=== PATIENT | male | born 1925 | race Caucasian/White ===

== ENCOUNTER 2016-05-20 09:44 | Observation (INO) | payer MEDICARE, BC ==
--- NOTE | 2016-05-20 09:54 | ED ---
Skin/Abscess/FB HPI - General Chief complaint: Skin/Abscess/Foreign Body Stated complaint: LEFT GROIN-HEMATOMA Source: patient, family Mode of arrival: wheelchair Limitations: no limitations - History of Present Illness Initial comments: Patient is a 89-year-old male who presents for evaluation for a mass to the left of his testicles. Has medical history as below. The patient's is the primary historian. The patient has dementia. Patient has been scratching in the groin area and has been sometimes bleeding. Over the last 2 days, the patient's noticed what she describes as a hematoma. She tried to call her primary care physician today but they left early for the day. is also concerned about a cough the patient's been having. He has a known history of COPD per chart review. He is not on any inhalers at home. Denies fever, headaches, URI symptoms, shortness of breath, cough, chest pain, nausea, vomiting, diarrhea, changes in urination. - Related Data Home Medications Medication Instructions Recorded Confirmed Aspirin 81 mg PO HS 05/20/16 05/20/16 Atenolol [Tenormin] 50 mg PO HS 05/20/16 05/20/16 Benzonatate [Tessalon Perles] 100 mg PO BID 05/20/16 05/20/16 Calcium Carbonate/Vitamin D3 1 tab PO DAILY 05/20/16 05/20/16 [Calcium 600-Vit D3 200 Tablet] Clopidogrel [Plavix] 75 mg PO HS 05/20/16 05/20/16 Cyanocobalamin (Vitamin B-12) 1,000 mcg PO DAILY 05/20/16 05/20/16 [Vitamin B-12] Fludrocortisone [Florinef] 0.1 mg PO DAILY 05/20/16 05/20/16 Lisinopril [Zestril] 10 mg PO DAILY 05/20/16 05/20/16 Lutein 10 mg PO HS 05/20/16 05/20/16 Memantine [Namenda] 10 mg PO BID 05/20/16 05/20/16 amLODIPine [Norvasc] 5 mg PO HS 05/20/16 05/20/16 Allergies Allergy/AdvReac Type Severity Reaction Status Date / Time No Known Allergies Allergy Verified 05/20/16 10:14 Review of Systems ROS Statement: Those systems with pertinent positive or pertinent negative responses have been documented in the HPI. ROS Other: All systems not noted in ROS Statement are negative. Past Medical History Past Medical History: Cancer, COPD, Dementia, Hypertension Additional Past Medical History / Comment(s): prostate CA History of Any Multi-Drug Resistant Organisms: None Reported Additional Past Surgical History / Comment(s): AAA repair Past Psychological History: No Psychological Hx Reported Smoking Status: Former smoker Past Alcohol Use History: None Reported Past Drug Use History: None Reported General Exam Limitations: no limitations General appearance: alert, in no apparent distress Head exam: Present: atraumatic, normocephalic, normal inspection Eye exam: Present: normal appearance, PERRL, EOMI. Absent: scleral icterus, conjunctival injection, periorbital swelling ENT exam: Present: normal exam, mucous membranes dry Neck exam: Present: normal inspection. Absent: tenderness, meningismus, lymphadenopathy Respiratory exam: Present: normal lung sounds bilaterally, other (Clear bilaterally without wheezes rales or rhonchi. Dry nonproductive cough.). Absent: respiratory distress, wheezes, rales, rhonchi, stridor Cardiovascular Exam: Present: regular rate, normal rhythm, normal heart sounds. Absent: systolic murmur, diastolic murmur, rubs, gallop, clicks GI/Abdominal exam: Present: soft, normal bowel sounds. Absent: distended, tenderness, guarding, rebound, rigid exam: Present: normal inspection, other (There is a fluctuant abscess to the left of the testicles. It is actively draining a purulent discharge. No overlying cellulitis. There is also evidence of fungal infection in the intratrigus area.). Absent: testicular tenderness, urethral discharge, scrotal swelling Extremities exam: Present: normal inspection, full ROM, normal capillary refill. Absent: tenderness, pedal edema, joint swelling, calf tenderness Back exam: Present: normal inspection Neurological exam: Present: alert, CN II-XII intact Psychiatric exam: Present: normal affect, normal mood Skin exam: Present: warm, dry, intact, normal color, other (See exam.). Absent: rash Course Vital Signs 05/20/16 09:46 Temperature 97.0 F L Pulse Rate 62 Respiratory 18 Rate Blood Pressure 139/71 O2 Sat by Pulse 94 L Oximetry Medical Decision Making - Medical Decision Making 1010: Patient presents for evaluation for mass to the left of his testicles. It appears to be an abscess. We'll get an ultrasound of the left groin to see how deep the abscess pocket tracks as it is close to the patient's testicles. We'll also get basic labs and a two-view chest x-ray as the patient has been coughing a little more than usual. 1130: Evidence of a moderate pleural effusion on the right. Review the ultrasound which revealed possible phlegmon versus hematoma. However, the patient is having purulent drainage from the abscess. We'll order vancomycin and blood cultures. Discussed with Dr. Negrete who accepts him to his service. Requesting a consult to pulmonology. Updated the patient and the . Comfortable with admission. - Lab Data Result diagrams: 05/20/16 10:22 05/20/16 10:22 Lab Results 05/20/16 05/20/16 Range/Units 10:22 10:22 WBC 9.0 (3.8-10.6) k/uL RBC 3.89 L (4.30-5.90) m/uL Hgb 13.2 (13.0-17.5) gm/dL Hct 38.2 L (39.0-53.0) % MCV 98.3 (80.0-100.0) fL MCH 33.9 (25.0-35.0) pg MCHC 34.5 (31.0-37.0) g/dL RDW 14.3 (11.5-15.5) % Plt Count 181 (150-450) k/uL Neutrophils % 76 % Lymphocytes % 11 % Monocytes % 6 % Eosinophils % 4 % Basophils % 0 % Neutrophils # 6.8 (1.3-7.7) k/uL Lymphocytes # 1.0 (1.0-4.8) k/uL Monocytes # 0.6 (0-1.0) k/uL Eosinophils # 0.3 (0-0.7) k/uL Basophils # 0.0 (0-0.2) k/uL Sodium 143 (137-145) mmol/L Potassium 3.4 L (3.5-5.1) mmol/L Chloride 108 H (98-107) mmol/L Carbon Dioxide 25 (22-30) mmol/L Anion Gap 10 mmol/L BUN 21 H (9-20) mg/dL Creatinine 0.96 (0.66-1.25) mg/dL Est GFR (MDRD) Af Amer >60 (>60 ml/min/1.73 sqM) Est GFR (MDRD) Non-Af >60 (>60 ml/min/1.73 sqM) Glucose 116 H (74-99) mg/dL Calcium 9.0 (8.4-10.2) mg/dL Disposition Clinical Impression: Pleural effusion, Abscess, Hypokalemia Disposition: ADMITTED IP TO THIS HOSP Condition: Fair Decision to Admit Reason: Admit from EC
[2016-05-20] MEDS ORDERED: SODIUM CHLORIDE 0.9% 500 ML IV ONE (10:11)
[2016-05-20 10:38] LABS: Basophils % (A) 0 %; CH 33.7; CHCM 34.5; Eosinophils # (A) 0.3 k/uL (0-0.7); Eosinophils % (A) 4 %; HCT 38.2 % (39.0-53.0); HGB 13.2 gm/dL (13.0-17.5); Luc # (Auto) 0.22; Luc % (Auto) 3; Lymphocytes % (A) 11 %; MCH 33.9 pg (25.0-35.0); MCHC 34.5 g/dL (31.0-37.0); MCV 98.3 fL (80.0-100.0); Mean Platelet Volume 8.4; Monocytes # (A) 0.6 k/uL (0-1.0); Monocytes % (A) 6 %; Neutrophils # (A) 6.8 k/uL (1.3-7.7); Neutrophils % (A) 76 %; RBC 3.89 m/uL (4.30-5.90); RDW 14.3 % (11.5-15.5); WBC (Perox) 9.21
--- NOTE | 2016-05-20 10:43 | XR ---
EXAMINATION TYPE: XR chest 2V DATE OF EXAM: 05/20/2016 10:36 AM COMPARISON: 11/13/2015 INDICATION: Pain TECHNIQUE: Single frontal view of the chest is obtained. FINDINGS: The heart size is normal. The pulmonary vasculature is normal. There is a moderate right pleural effusion. Pacemaker overlies left chest. There is an old left distal clavicular fracture. IMPRESSION: 1. Moderate right pleural effusion.
[2016-05-20 10:53] LABS: Anion Gap 10 mmol/L; Blood Urea Nitrogen 21 mg/dL (9-20); Carbon Dioxide 25 mmol/L (22-30); Chloride 108 mmol/L (98-107); Glucose 116 mg/dL (74-99); Non-African American GFR(MDRD) >60 (>60 ml/min/1.73 sqM); Potassium 3.4 mmol/L (3.5-5.1); Sodium 143 mmol/L (137-145)
--- NOTE | 2016-05-20 11:31 | US ---
EXAMINATION TYPE: US groin extremity LT DATE OF EXAM: 05/20/2016 11:02 AM COMPARISON: NONE CLINICAL HISTORY: Pain. Redness left groin TECHNOLOGIST IMPRESSION: Complex heterogeneous area left groin = 2.9 x 2.2 x 2.4cm. 2nd hypoechoic a yamilet left groin = 2.1 x 0.6 x 1.1cm IMPRESSION: 1. Phlegmon is not excluded. A well-formed abscess is not identified. The hematoma could be considered if there is been trauma.
[2016-05-20] MEDS ORDERED: IV VANCOMYCIN PER PHARMACY 1 EACH MISC MISCELLANE PRN (11:43)
[2016-05-20] MEDS ORDERED: NALOXONE 0.4 MG/ML 1 ML VIAL IV PRN (11:46)
[2016-05-20] MEDS ORDERED: VANCOMYCIN 1,250 MG in SODIUM CHLORIDE 0.9% 250 ML IVPB STA (11:47)
[2016-05-20] MEDS ORDERED: SODIUM CHLORIDE 0.9% 1,000 ML IV STA (12:02)
[2016-05-20 15:23] VITALS: BMI 23.6
--- NOTE | 2016-05-20 15:33 | P.HPIM ---
History of Present Illness 89-year-old male admitted to the emergency room with complaints of shortness of breath noted to have access to left groin. Found to have the pleural effusion right side new set Review of Systems Respiratory: Reports cough, Reports dyspnea Integumentary: Reports boils Past Medical History Past Medical History: Cancer, COPD, CVA/TIA, Dementia, Eye Disorder, Hypertension, Memory Impairment, Sleep Apnea/CPAP/BIPAP, Vascular Disorder Additional Past Medical History / Comment(s): CVA with blindness R eye, prostate CA treated with hormones, vertigo but spouse thinks might be due to position changes, JUAN M with no CPAP use. History of Any Multi-Drug Resistant Organisms: None Reported Past Surgical History: Appendectomy, Pacemaker Additional Past Surgical History / Comment(s): AAA repair, 7 stents spouse states all in his aorta and bilateral legs, L caratid endartectomy, pacemaker, colonoscopy. Past Anesthesia/Blood Transfusion Reactions: No Reported Reaction Type of Cardiac Device: Permanent Pacemaker Device Placement Date:: 2009 Past Psychological History: No Psychological Hx Reported Additional Psychological History / Comment(s): Pt has dementia and memory loss. He resides with his spouse of 17yrs. He uses no assistive device. 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 He is not receiving any home care. Smoking Status: Former smoker Past Alcohol Use History: None Reported Additional Past Alcohol Use History / Comment(s): Pt smoked from about 1950 to about 1979. Past Drug Use History: None Reported - Past Family History Mother Family Medical History: Cancer Additional Family Medical History / Comment(s): Mother lived to be close to 90. Father Family Medical History: Dementia Additional Family Medical History / Comment(s): Father in his late 80's. Medications and Allergies Home Medications Medication Instructions Recorded Confirmed Type Aspirin 81 mg PO HS 05/20/16 05/20/16 History Atenolol [Tenormin] 50 mg PO HS 05/20/16 05/20/16 History Benzonatate [Tessalon Perles] 100 mg PO BID 05/20/16 05/20/16 History Calcium Carbonate/Vitamin D3 1 tab PO DAILY 05/20/16 05/20/16 History [Calcium 600-Vit D3 200 Tablet] Clopidogrel [Plavix] 75 mg PO HS 05/20/16 05/20/16 History Cyanocobalamin (Vitamin B-12) 1,000 mcg PO DAILY 05/20/16 05/20/16 History [Vitamin B-12] Fludrocortisone [Florinef] 0.1 mg PO DAILY 05/20/16 05/20/16 History Lisinopril [Zestril] 10 mg PO DAILY 05/20/16 05/20/16 History Lutein 10 mg PO HS 05/20/16 05/20/16 History Memantine [Namenda] 10 mg PO BID 05/20/16 05/20/16 History amLODIPine [Norvasc] 5 mg PO HS 05/20/16 05/20/16 History Allergies Allergy/AdvReac Type Severity Reaction Status Date / Time No Known Allergies Allergy Verified 05/20/16 10:14 Physical Exam Vitals: Vital Signs Temp Pulse Resp BP Pulse Ox 05/20/16 13:29 97.8 F 60 18 173/75 93 L 05/20/16 11:47 97.3 F L 64 18 131/69 95 Intake and Output 05/20/16 05/20/16 05/20/16 06:59 14:59 22:59 Other: Weight 72.575 kg Patient Weight 05/21/16 06:59 Weight 72.575 kg - Constitutional General appearance: mild distress - EENT Eyes: PERRLA Ears: bilateral: normal - Neck Neck: normal ROM - Respiratory Respiratory: right: diminished - Cardiovascular Rhythm: regular - Gastrointestinal General gastrointestinal: soft - Integumentary Draining abscess ordered to right groin Results CBC & Chem 7: 05/20/16 10:22 05/20/16 10:22 Labs: Microbiology - Last 24 Hours (Table) 05/20/16 12:05 Wound Culture - Preliminary Groin Chest x-ray: report reviewed Thrombosis Risk Factor Assmnt - Choose All That Apply Any of the Below Risk Factors Present?: Yes Each Factor Represents 1 point: Abnormal pulmonary function (COPD) Other Risk Factors: Yes Each Risk Factor Represents 3 Points: Age 75 years or older Other congenital or acquired thrombophilia - If yes, enter type in comment: No Thrombosis Risk Factor Assessment Total Risk Factor Score: 4 Thrombosis Risk Factor Assessment Level: Moderate Risk Assessment and Plan Plan: Assessment abscess left groin pleural effusion history of COPD history of TIA/CVA history of dementia hypertension sleep apnea Plan on vancomycin for abscess consultation with regarding the effusion
--- NOTE | 2016-05-20 18:24 | P.CNPUL ---
History of Present Illness Consult date: 05/20/16 Requesting physician: Shin Negrete Reason for consult: pleural effusion Chief complaint: Cough, shortness of breath History of present illness: This is a very pleasant 89-year-old gentleman who follows with Dr. Shin Negrete as his primary care physician. He has a history of hypertension, hyperlipidemia , peripheral vascular disease with multiple stent placements including a stent to the aorta. 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 Approximately 2-3 weeks ago he had developed increasing shortness of breath and a cough according to his . He has significant dementia and is a poor historian himself. He was in the [place] years ago, unclear if there is asbestos exposure. 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 She states he has also had issues with orthopnea and trouble laying flat in bed without getting short of breath. He was treated unclear medication at that time without any improvement. He presented the emergency room for continued complaints of cough. She states last night he had actually turned blue for a few seconds while coughing so hard. His chest x-ray here revealed a moderate-sized right pleural effusion. He is seen today in the regular medical floor. He is awake and alert in no acute distress. He is maintaining O2 saturations in the mid 90s on room air. He does have a loose nonproductive cough. No hemoptysis. No significant weight loss. No leukocytosis. No fever. Review of Systems ROS unobtainable: due to mental status Past Medical History Past Medical History: Cancer, COPD, CVA/TIA, Dementia, Eye Disorder, Hypertension, Memory Impairment, Sleep Apnea/CPAP/BIPAP, Vascular Disorder Additional Past Medical History / Comment(s): CVA with blindness R eye, prostate CA treated with hormones, vertigo but spouse thinks might be due to position changes, JUAN M with no CPAP use. History of Any Multi-Drug Resistant Organisms: None Reported Past Surgical History: Appendectomy, Pacemaker Additional Past Surgical History / Comment(s): AAA repair, 7 stents spouse states all in his aorta and bilateral legs, L caratid endartectomy, pacemaker, colonoscopy. Past Anesthesia/Blood Transfusion Reactions: No Reported Reaction Type of Cardiac Device: Permanent Pacemaker Device Placement Date:: 2009 Past Psychological History: No Psychological Hx Reported Additional Psychological History / Comment(s): Pt has dementia and memory loss. He resides with his spouse of 17yrs. He uses no assistive device. He no longer has a [employer] driver's license. His spouse drives. He is not receiving any home care. Smoking Status: Former smoker Past Alcohol Use History: None Reported Additional Past Alcohol Use History / Comment(s): Pt smoked from about 1950 to about 1980. Past Drug Use History: None Reported - Past Family History Mother Family Medical History: Cancer Additional Family Medical History / Comment(s): Mother lived to be close to 90. Father Family Medical History: Dementia Additional Family Medical History / Comment(s): Father in his late 80's. Medications and Allergies Home Medications Medication Instructions Recorded Confirmed Type Aspirin 81 mg PO HS 05/20/16 05/20/16 History Atenolol [Tenormin] 50 mg PO HS 05/20/16 05/20/16 History Benzonatate [Tessalon Perles] 100 mg PO BID 05/20/16 05/20/16 History Calcium Carbonate/Vitamin D3 1 tab PO DAILY 05/20/16 05/20/16 History [Calcium 600-Vit D3 200 Tablet] Clopidogrel [Plavix] 75 mg PO HS 05/20/16 05/20/16 History Cyanocobalamin (Vitamin B-12) 1,000 mcg PO DAILY 05/20/16 05/20/16 History [Vitamin B-12] Fludrocortisone [Florinef] 0.1 mg PO DAILY 05/20/16 05/20/16 History Lisinopril [Zestril] 10 mg PO DAILY 05/20/16 05/20/16 History Lutein 10 mg PO HS 05/20/16 05/20/16 History Memantine [Namenda] 10 mg PO BID 05/20/16 05/20/16 History amLODIPine [Norvasc] 5 mg PO HS 05/20/16 05/20/16 History Allergies Allergy/AdvReac Type Severity Reaction Status Date / Time No Known Allergies Allergy Verified 05/20/16 10:14 Physical Exam Vitals: Vital Signs Temp Pulse Pulse Resp BP BP Pulse Ox 05/20/16 16:19 97.9 F 61 16 134/80 95 05/20/16 13:29 97.8 F 60 18 173/75 93 L 05/20/16 11:47 97.3 F L 64 18 131/69 95 Intake and Output 05/20/16 05/20/16 05/20/16 06:59 14:59 22:59 Other: Weight 72.575 kg Patient Weight 05/21/16 06:59 Weight 72.575 kg GENERAL EXAM: Alert, comfortable in no apparent distress. HEAD: Normocephalic. EYES: Normal reaction of pupils, equal size. NOSE: Clear with pink turbinates. THROAT: No erythema or exudates. NECK: No masses, no JVD. CHEST: No chest wall deformity. LUNGS: Diminished in the right lung base. CVS: S1 and S2 normal with no audible murmurs, regular rhythm. ABDOMEN: No hepatosplenomegaly, normal bowel sounds, no guarding or rigidity. SPINE: No scoliosis or deformity SKIN: No rashes CENTRAL NERVOUS SYSTEM: No focal deficits, tone is normal in all 4 extremities. Extremities: There is no significant peripheral edema. No clubbing, no cyanosis. Peripheral pulses are intact. Results - Laboratory Findings CBC and BMP: 05/20/16 10:22 05/20/16 10:22 - Diagnostic Findings Chest x-ray: image reviewed (Moderate right-sided pleural effusion) Assessment and Plan Plan: Impression: #1 Dyspnea with cough secondary to moderate size right pleural effusion. #2 Remote history of chronic tobacco dependence however quit 34 years ago. 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 #4 Hypertension. #5 Peripheral vascular disease with multiple stent placements in the lower extremities. And previous stent to the aorta. 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 #7 History of prostate cancer. #8 Left groin pain secondary to suspected phlegmon him a no well-formed abscess noted. Plan: The patient was seen and evaluated by Dr. Gamboa. His chest x-ray was reviewed. We will plan for right-sided thoracentesis tomorrow which would be both diagnostic and therapeutic. His is agreeable to the plan. In the interim we'll continue with his current medications. He is on antibiotics in the form of vancomycin. We will continue to follow make further recommendations based on his clinical status.
[2016-05-20] MEDS: ATENOLOL 50 MG TAB PO SCH (20:58)
[2016-05-20] MEDS: MEMANTINE 10 MG TAB PO SCH (20:58)
[2016-05-20] MEDS: amLODIPine 5 MG TAB PO SCH (20:58)
[2016-05-20] MEDS: ASPIRIN 81 MG CHEW PO SCH (20:58)
[2016-05-20] MEDS ORDERED: NON-FORMULARY DRUG (Lutein [Lutein] 10 MG) PO SCH (21:00)
[2016-05-20] MEDS: VANCOMYCIN 1,250 MG in SODIUM CHLORIDE 0.9% 250 ML IVPB SCH (23:05)
[2016-05-21] MEDS: MEMANTINE 10 MG TAB PO SCH ×2 (08:22→20:28)
[2016-05-21] MEDS: LISINOPRIL 10 MG TAB PO SCH (08:22)
[2016-05-21] MEDS: FLUDROCORTISONE 0.1 MG TAB PO SCH (08:22)
[2016-05-21] MEDS: CALCIUM CARB-VIT D 500MG-200UN 1 EACH TAB PO SCH (08:22)
--- NOTE | 2016-05-21 11:39 | P.PN ---
Subjective Patient resting comfortably in bed without complaint groin continues to drain 10 mL of purulent drainage expressed from draining wound Objective - Vital Signs Vital signs: Vital Signs Temp 97 F L 05/21/16 07:00 Pulse 60 05/21/16 07:00 Resp 16 05/21/16 07:00 BP 134/72 05/21/16 07:00 Pulse Ox 93 L 05/21/16 07:00 Intake & Output 05/20/16 05/21/16 05/21/16 18:59 06:59 18:59 Output Total 400 200 Balance -400 -200 Weight 72.575 kg Output: Urine 400 200 - Constitutional General appearance: Present: average body habitus - EENT Eyes: Present: PERRLA Ears: bilateral: normal - Neck Neck: Present: normal ROM - Respiratory Respiratory: bilateral: CTA - Cardiovascular Rhythm: regular - Gastrointestinal General gastrointestinal: Present: soft - Integumentary Integumentary Comment(s): Drainage wound to left groin no redness at this point - Neurologic Neurologic: Present: CNII-XII intact - Musculoskeletal Musculoskeletal: Present: generalized weakness - Psychiatric Psychiatric Comment(s): Patient pleasantly confused at bedside - Labs CBC & Chem 7: 05/20/16 10:22 05/20/16 10:22 Labs: Microbiology - Last 24 Hours (Table) 05/20/16 12:05 Gram Stain - Preliminary Groin Wound Culture - Preliminary Presumptive Staph aureus - Imaging and Cardiology Chest x-ray: report reviewed Assessment and Plan Plan: Assessment Abscess left groin Pleural effusion History of COPD History of TIA/CVA History of dementia Hypertension Sleep apnea Peripheral vascular disease with stent Plan Patient continues on vancomycin for abscess Consultation with Dr. Gamboa regarding the pleural effusion plan for thoracentesis
[2016-05-21] MEDS: CYANOCOBALAMIN 500 MCG TAB PO SCH (12:07)
[2016-05-21] MEDS ORDERED: RX INFO: IV CONTRAST WAS GIVEN 1 EACH MISC MISCELLANE PRN (15:34)
--- NOTE | 2016-05-21 15:34 | XR ---
EXAMINATION TYPE: XR chest 1V portable DATE OF EXAM: 05/21/2016 3:14 PM CLINICAL HISTORY: Difficulty breathing progress study. Post right-sided thoracentesis. TECHNIQUE: Single AP portable upright view of the chest is obtained. COMPARISON: Chest x-ray from one day earlier FINDINGS: There is persistent moderate right-sided pleural effusion after thoracentesis. There is as sociated right basilar atelectasis and/or infiltrate. No sizable pneumothorax is seen. There is persi stent patchy left basilar atelectasis and/or infiltrate. Cardiac silhouette size is stable and mildly enlarged with dual lead pacemaker and atherosclerotic thoracic aorta. Trachea is less well-seen on c urrent study. Osseous structures are demineralized. Old healed left clavicular fracture is redemonstr ated. IMPRESSION: No evidence of new sizable pneumothorax after right-sided thoracentesis. There is persist ent moderate size right pleural effusion and bibasilar atelectasis and/or infiltrate all redemonstrat ed.
--- NOTE | 2016-05-21 15:48 | P.PN ---
Subjective This is a very pleasant 89-year-old gentleman who follows with Dr. Shin Negrete as his primary care physician. He has a history of hypertension, hyperlipidemia , peripheral vascular disease with multiple stent placements including a stent to the aorta. 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 Approximately 2-3 weeks ago he had developed increasing shortness of breath and a cough according to his . He has significant dementia and is a poor historian himself. He was in the [place] years ago, unclear if there is asbestos exposure. 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 She states he has also had issues with orthopnea and trouble laying flat in bed without getting short of breath. He was treated unclear medication at that time without any improvement. He presented the emergency room for continued complaints of cough. She states last night he had actually turned blue for a few seconds while coughing so hard. His chest x-ray here revealed a moderate-sized right pleural effusion. He is seen today in the regular medical floor. He is awake and alert in no acute distress. He is maintaining O2 saturations in the mid 90s on room air. He does have a loose nonproductive cough. No hemoptysis. No significant weight loss. No leukocytosis. No fever. On 05/21/2016, the patient is being seen in follow-up. His condition essentially the same. No significant worsening shortness of breath. No cough or sputum production. No chest pain. The plan is to proceed with a thoracentesis today. The procedure was done at the bedside. Total of 1.1 L of pleural fluid was aspirated from the right lung. The fluid itself was extremely viscous and turbid and dark yellowish in nature and this could be potentially a parapneumonic pleural effusion. Postprocedure chest x-ray showed residual consolidation of the right lung without evidence of any pneumothorax. In fact, the extent of consolidation opacification of the right lower lobe was worse compared to the preoperative thoracentesis. Based on that the CAT scan of the chest will be ordered. Clinically however the patient has no complaints and he is stable for the time being. Objective - Vital Signs Vital signs: Vital Signs Temp 98.5 F 05/21/16 15:00 Pulse 62 05/21/16 15:00 Resp 16 05/21/16 15:00 BP 109/53 03/15/17 15:00 Pulse Ox 95 05/21/16 15:00 Intake & Output 05/20/16 05/21/16 05/21/16 18:59 06:59 18:59 Intake Total 160 Output Total 400 650 Balance -400 -490 Weight 72.575 kg Intake: Intake, IV Titration 160 Amount Sodium Chloride 0.9% 1, 160 000 ml @ 20 mls/hr IV . Q24H STA Rx#:[id number] Output: Urine 400 650 - Exam Head exam was generally normal. There was no scleral icterus or corneal arcus. Mucous membranes were moist.Neck was supple and without jugular venous distension, thyromegaly, or carotid bruits. Carotids were easily palpable bilaterally. There was no adenopathy. Lung sounds are diminished specially in the right lung base along with dullness to percussion.Cardiac exam revealed the PMI to be normally situated and sized. The rhythm was regular and no extrasystoles were noted during several minutes of auscultation. The first and second heart sounds were normal and physiologic splitting of the second heart sound was noted. There were no murmurs, rubs, clicks, or gallops.Abdominal exam revealed normal bowel sounds. The abdomen was soft, non-tender, and without masses, organomegaly, or appreciable enlargement of the abdominal aorta. Examination of the extremities revealed easily palpable radial, femoral and pedal pulses. There was no cyanosis, clubbing or edema. - Labs CBC & Chem 7: 05/20/16 10:22 05/20/16 10:22 Labs: Microbiology - Last 24 Hours (Table) 05/20/16 12:05 Blood Culture - Preliminary Blood No Growth after 24 hours 05/20/16 12:05 Gram Stain - Preliminary Groin Wound Culture - Preliminary Presumptive Staph aureus Assessment and Plan Plan: Impression: #1 Dyspnea with cough secondary to moderate size right pleural effusion. Rule out parapneumonic pleural effusion. Rule out malignant pleural effusion. A thoracentesis was performed today and total of 1.1 L of viscous turbid dark yellowish fluid was aspirated from the right lung. The patient underwent the procedure without any major complications. Nevertheless the post procedure chest x-ray showed residual consolidation of the right lung with possibly some located pleural effusion. As such a CAT scan of the chest will be needed to further characterize these abnormalities. Meanwhile the pleural fluid was sent for analysis including cell count, cultures and cytology. #2 Remote history of chronic tobacco dependence however quit 34 years ago. 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 #4 Hypertension. #5 Peripheral vascular disease with multiple stent placements in the lower extremities. And previous stent to the aorta. 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 #7 History of prostate cancer. #8 Left groin pain secondary to suspected phlegmon. Ultrasound was done and a phlegmon is not excluded. The patient does not have any abscess. Hematoma could be considered within the involved area. #9 dementia Plan Proceed with a CAT scan of the chest with contrast. May need a CAT scan guided chest tube insertion if there is any loculated residual pleural fluid. We'll be awaiting the pleural fluid cytology, cultures and cell count and chemistry to make a final recommendation. 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
--- NOTE | 2016-05-21 15:50 | P.PCN ---
Date of Procedure: 05/21/16 Preoperative Diagnosis: Right-sided pleural effusion Postoperative Diagnosis: Right-sided pleural effusion Procedure(s) Performed: Thoracentesis Anesthesia: MAC Surgeon: Constantino Gamboa Marketing Recruiter #1: Lyndsey Manzano Estimated Blood Loss (ml): 0 Pathology: other Condition: stable Disposition: floor Operative Findings: This procedure was done at the bedside. The patient was placed in the usual fashion with arms extended and the bedside table. A procedures timeout was obtained and a consent was signed by family member. The right posterior chest was cleaned using ChloraPrep it was incised using 1% lidocaine. Following a thoracentesis catheter was inserted into the right hemithorax and a total of 1.1 L of viscous, turbid, dark yellowish pleural effusion was aspirated. The drainage of the fluid stopped spontaneously after evacuating 1.1 L of fluids. The patient tolerated the procedure well. The catheter was removed. A subsequent chest x-ray showed no evidence of any pneumothorax and there was a significant consolidation of the right lung which is probably a combination of consolidation and likely the pleural effusion. Based on that, a CAT scan of the chest will be ordered. The pleural fluid was sent for analysis.
[2016-05-21 17:00] LABS: Total Protein 5.6 g/dL (6.3-8.2)
--- NOTE | 2016-05-21 17:26 | CT ---
EXAMINATION TYPE: CT chest w con DATE OF EXAM: 05/21/2016 5:10 PM COMPARISON: NONE HISTORY: Patient poor historian. Abnormal CXR. Patient displays unproductive cough. CT DLP: 343.7 mGycm Automated exposure control for dose reduction was used. CONTRAST: CT scan of the chest is performed with IV Contrast, patient injected with 100 mL of Omnipaque 300. FINDINGS: LUNGS AND PLEURAL SPACES: There is no pneumothorax. There is a massive right pleural effusion with at electasis of the right lower lobe and most of the right upper lobe with the exception of the anterior segment. The right middle lobe is predominantly inflated. The left lung is inflated and there is no left pleural effusion.There is thickening and indistinctness to the interlobar fissures and a depende nt pattern of groundglass opacity within the lung parenchyma, consistent with mild interstitial phase pulmonary edema. There are a few scattered en plaque thin pleural plaques identified bilaterally, some of soft tissue density and others of calcified density. MEDIASTINUM: There are no greater than 1 cm hilar or mediastinal lymph nodes. No pericardial effusi on is seen. There is leftward shift of the mediastinum, with mild cardiomegaly with panchamber enlargement. Promi nent coronary calcifications are noted. Cardiac pacemaker is noted. The pulmonary arterial anatomy is prominent in caliber, suggesting the clinical possibility of pulmon mali hypertension. There is mild ectasia of the thoracic aorta with atherosclerotic calcifications and minimal intraluminal thrombus. OTHER: The visualized subdiaphragmatic structures and visualized skeletal structures are unremarkabl e. IMPRESSION: 1. Massive right pleural effusion with pleural plaques and with associated passive atelectasis of the right upper and lower lobes. 2. Mild cardiomegaly, coronary calcifications, pulmonary arterial caliber prominence. 3. Mild interstitial phase pulmonary edema.
[2016-05-21] MEDS: VANCOMYCIN 1,250 MG in SODIUM CHLORIDE 0.9% 250 ML IVPB SCH (17:30)
[2016-05-21] MEDS: amLODIPine 5 MG TAB PO SCH (20:28)
[2016-05-21] MEDS: ASPIRIN 81 MG CHEW PO SCH (20:28)
[2016-05-21] MEDS: ATENOLOL 50 MG TAB PO SCH (20:28)
[2016-05-21 21:15] LABS: RBC, Body Fluid 1690 /uL
[2016-05-22] MEDS ORDERED: VANCOMYCIN TROUGH DUE 1 EACH MISC MISCELLANE ONE (07:00)
[2016-05-22] MEDS: VANCOMYCIN 1,250 MG in SODIUM CHLORIDE 0.9% 250 ML IVPB SCH (07:37)
[2016-05-22 07:56] LABS: Anion Gap 5 mmol/L; Blood Urea Nitrogen 23 mg/dL (9-20); Calcium 8.2 mg/dL (8.4-10.2); Carbon Dioxide 28 mmol/L (22-30); Chloride 107 mmol/L (98-107); Glucose 101 mg/dL (74-99); Non-African American GFR(MDRD) >60 (>60 ml/min/1.73 sqM); Potassium 3.9 mmol/L (3.5-5.1); Sodium 140 mmol/L (137-145)
[2016-05-22] MEDS: CALCIUM CARB-VIT D 500MG-200UN 1 EACH TAB PO SCH (08:51)
[2016-05-22] MEDS: FLUDROCORTISONE 0.1 MG TAB PO SCH (08:52)
[2016-05-22] MEDS: LISINOPRIL 10 MG TAB PO SCH (08:52)
[2016-05-22] MEDS: MEMANTINE 10 MG TAB PO SCH ×2 (08:52→22:13)
--- NOTE | 2016-05-22 12:10 | P.PN ---
Subjective Patient resting comfortably in bed computed tomography scan shows persistent pleural effusion patient is post thoracentesis with 1.1 L removed. Awaiting decision on pulmonology for further treatment. Had discussion with she needs have consultation with son who has power of real estate associate attorney regarding possible no code no ventilation. Continues to have purulent drainage from left groin abscess Objective - Vital Signs Vital signs: Vital Signs Temp 97.4 F L 05/22/16 07:00 Pulse 63 05/22/16 07:00 Resp 14 05/22/16 07:00 BP 137/71 05/22/16 07:00 Pulse Ox 91 L 05/22/16 07:00 Intake & Output 05/21/16 05/22/16 05/22/16 18:59 06:59 18:59 Intake Total 160 Output Total 650 Balance -490 Intake: Intake, IV Titration 160 Amount Sodium Chloride 0.9% 1, 160 000 ml @ 20 mls/hr IV . Q24H STA Rx#:[id number] Output: Urine 650 Other: Voiding Method Toilet Urinal # Voids 1 # Bowel Movements 1 - Constitutional General appearance: Present: obese - EENT Eyes: Present: PERRLA Ears: bilateral: normal - Neck Neck: Present: normal ROM - Respiratory Respiratory: right: diminished - Cardiovascular Rhythm: regular - Integumentary Integumentary: Present: normal - Neurologic Neurologic: Present: CNII-XII intact - Psychiatric Psychiatric Comment(s): Patient pleasantly confused - Labs CBC & Chem 7: 05/20/16 10:22 05/22/16 07:31 Labs: Abnormal Lab Results - Last 24 Hours (Table) 05/21/16 05/22/16 Range/Units 16:32 07:31 BUN 23 H (9-20) mg/dL Glucose 101 H (74-99) mg/dL Calcium 8.2 L (8.4-10.2) mg/dL Total Protein 5.6 L (6.3-8.2) g/dL Microbiology - Last 24 Hours (Table) 05/20/16 12:05 Gram Stain - Final Groin Wound Culture - Final Staphylococcus aureus 05/21/16 14:20 Gram Stain - Preliminary Pleural Fluid Body Fluid Culture - Preliminary 05/20/16 12:05 Blood Culture - Preliminary Blood No Growth after 24 hours - Imaging and Cardiology Chest x-ray: report reviewed CT scan - chest: report reviewed Assessment and Plan Plan: Assessment Abscess left groin Pleural effusion post thoracentesis History of COPD History of TIA/CVA History of dementia Hypertension Sleep apnea Peripheral vascular D disease with history of stent Plan Consult continued vancomycin Continue consultation with
[2016-05-22] MEDS: CYANOCOBALAMIN 500 MCG TAB PO SCH (13:05)
[2016-05-22 13:39] LABS: Body Fluid Comment Many Mesothelial
[2016-05-22 15:21] VITALS: TEMP 97
--- NOTE | 2016-05-22 15:31 | P.PN ---
Subjective This is a very pleasant 89-year-old gentleman who follows with Dr. Shin Negrete as his primary care physician. He has a history of hypertension, hyperlipidemia , peripheral vascular disease with multiple stent placements including a stent to the aorta. 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 Approximately 2-3 weeks ago he had developed increasing shortness of breath and a cough according to his . He has significant dementia and is a poor historian himself. He was in the [place] years ago, unclear if there is asbestos exposure. 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 She states he has also had issues with orthopnea and trouble laying flat in bed without getting short of breath. He was treated unclear medication at that time without any improvement. He presented the emergency room for continued complaints of cough. She states last night he had actually turned blue for a few seconds while coughing so hard. His chest x-ray here revealed a moderate-sized right pleural effusion. He is seen today in the regular medical floor. He is awake and alert in no acute distress. He is maintaining O2 saturations in the mid 90s on room air. He does have a loose nonproductive cough. No hemoptysis. No significant weight loss. No leukocytosis. No fever. On 05/21/2016, the patient is being seen in follow-up. His condition essentially the same. No significant worsening shortness of breath. No cough or sputum production. No chest pain. The plan is to proceed with a thoracentesis today. The procedure was done at the bedside. Total of 1.1 L of pleural fluid was aspirated from the right lung. The fluid itself was extremely viscous and turbid and dark yellowish in nature and this could be potentially a parapneumonic pleural effusion. Postprocedure chest x-ray showed residual consolidation of the right lung without evidence of any pneumothorax. In fact, the extent of consolidation opacification of the right lower lobe was worse compared to the preoperative thoracentesis. Based on that the CAT scan of the chest will be ordered. Clinically however the patient has no complaints and he is stable for the time being. On 05/22/2016 the patient is resting comfortably in bed. The patient underwent a right lung thoracentesis for a total of 1.1 L of fluid was removed. The fluid was viscous. The fluid chemistry still pending for now. Meanwhile the CAT scan of the chest was also noted and it showed a moderate to large size right-sided pleural effusion that has been somewhat loculated and the patient had evidence of pleural plaquing and pleural thickening consistent with asbestos exposure. Serum LDH is at above 500. My suspicion for a malignant pleural effusion is quite high. Pleural fluid cytology still pending for now. Objective - Vital Signs Vital signs: Vital Signs Temp 97.0 F L 05/22/16 15:00 Pulse 63 05/22/16 15:00 Resp 16 05/22/16 15:00 BP 129/74 05/22/16 15:00 Pulse Ox 93 L 05/22/16 15:00 Intake & Output 05/21/16 05/22/16 05/22/16 18:59 06:59 18:59 Intake Total 160 Output Total 650 Balance -490 Intake: Intake, IV Titration 160 Amount Sodium Chloride 0.9% 1, 160 000 ml @ 20 mls/hr IV . Q24H STA Rx#:[id number] Output: Urine 650 Other: Voiding Method Toilet Urinal # Voids 1 2 # Bowel Movements 1 - Exam Head exam was generally normal. There was no scleral icterus or corneal arcus. Mucous membranes were moist.Neck was supple and without jugular venous distension, thyromegaly, or carotid bruits. Carotids were easily palpable bilaterally. There was no adenopathy. Lung sounds are diminished specially in the right lung base along with dullness to percussion.Cardiac exam revealed the PMI to be normally situated and sized. The rhythm was regular and no extrasystoles were noted during several minutes of auscultation. The first and second heart sounds were normal and physiologic splitting of the second heart sound was noted. There were no murmurs, rubs, clicks, or gallops.Abdominal exam revealed normal bowel sounds. The abdomen was soft, non-tender, and without masses, organomegaly, or appreciable enlargement of the abdominal aorta. Examination of the extremities revealed easily palpable radial, femoral and pedal pulses. There was no cyanosis, clubbing or edema. - Labs CBC & Chem 7: 05/20/16 10:22 05/22/16 07:31 Labs: Abnormal Lab Results - Last 24 Hours (Table) 05/21/16 05/22/16 Range/Units 16:32 07:31 BUN 23 H (9-20) mg/dL Glucose 101 H (74-99) mg/dL Calcium 8.2 L (8.4-10.2) mg/dL Total Protein 5.6 L (6.3-8.2) g/dL Microbiology - Last 24 Hours (Table) 05/21/16 14:20 Gram Stain - Preliminary Pleural Fluid Body Fluid Culture - Preliminary 05/20/16 12:05 Blood Culture - Preliminary Blood No Growth after 48 hours 05/20/16 12:05 Gram Stain - Final Groin Wound Culture - Final Staphylococcus aureus Assessment and Plan Plan: Impression: #1 Dyspnea with cough secondary to moderate size right pleural effusion. Rule out parapneumonic pleural effusion. Rule out malignant pleural effusion. A thoracentesis was performed today and total of 1.1 L of viscous turbid dark yellowish fluid was aspirated from the right lung. The patient underwent the procedure without any major complications. Nevertheless the post procedure chest x-ray showed residual consolidation of the right lung with possibly some located pleural effusion. As such a CAT scan of the chest will be needed to further characterize these abnormalities. Meanwhile the pleural fluid was sent for analysis including cell count, cultures and cytology. #2 Remote history of chronic tobacco dependence however quit 34 years ago. 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 #4 Hypertension. #5 Peripheral vascular disease with multiple stent placements in the lower extremities. And previous stent to the aorta. 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 #7 History of prostate cancer. #8 Left groin pain secondary to suspected phlegmon. Ultrasound was done and a phlegmon is not excluded. The patient does not have any abscess. Hematoma could be considered within the involved area. #9 dementia Plan on today's evaluation of 05/22/2016, the pleural fluid cytology is still pending. There is a high suspicion for malignancy. The pleural fluid LDH and protein is also pending. I have elected discussion with the patient's . Apparently is power of clay roaster is his son. She told me that the patient has 3 sons and 2 of the sons are living out of town. We'll may need to have further discussion with the family if the pleural fluid cytology comes back negative for malignancy. I think is a high suspicion for cancer this patient. Nevertheless, I feel that his performance and functional status is poor specially his underlying dementia and he may not be a candidate for any further diagnostic intervention should the pleural fluid cytology come back negative for malignancy. I would however discussed this with the family and make further recommendations. Alternatives such as repeated thoracenteses on history of basis for symptomatically reasons and a Pleurx catheter insertion may need to be considered. Would not suggest a thoracoscopic evaluation of the right lung due to above-mentioned reasons.
[2016-05-22] MEDS: ASPIRIN 81 MG CHEW PO SCH (22:12)
[2016-05-22] MEDS: amLODIPine 5 MG TAB PO SCH (22:12)
[2016-05-22] MEDS: ATENOLOL 50 MG TAB PO SCH (22:13)
[2016-05-23] MEDS: VANCOMYCIN 1,250 MG in SODIUM CHLORIDE 0.9% 250 ML IVPB SCH (01:53)
[2016-05-23 07:29] VITALS: BP 134/76; PULSE 60; RESP 16
[2016-05-23 09:17] LABS: Anion Gap 6 mmol/L; Blood Urea Nitrogen 18 mg/dL (9-20); Calcium 8.5 mg/dL (8.4-10.2); Carbon Dioxide 30 mmol/L (22-30); Chloride 103 mmol/L (98-107); Glucose 93 mg/dL (74-99); Non-African American GFR(MDRD) >60 (>60 ml/min/1.73 sqM); Potassium 3.9 mmol/L (3.5-5.1); Sodium 139 mmol/L (137-145)
[2016-05-23] MEDS: CALCIUM CARB-VIT D 500MG-200UN 1 EACH TAB PO SCH (09:38)
[2016-05-23] MEDS: FLUDROCORTISONE 0.1 MG TAB PO SCH (09:38)
[2016-05-23] MEDS: MEMANTINE 10 MG TAB PO SCH (09:38)
[2016-05-23] MEDS: LISINOPRIL 10 MG TAB PO SCH (09:38)
[2016-05-23] MEDS: CYANOCOBALAMIN 500 MCG TAB PO SCH (10:59)
--- NOTE | 2016-05-23 16:52 | P.PN ---
Subjective This is a very pleasant 89-year-old gentleman who follows with Dr. Shin Negrete as his primary care physician. He has a history of hypertension, hyperlipidemia , peripheral vascular disease with multiple stent placements including a stent to the aorta. 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 Approximately 2-3 weeks ago he had developed increasing shortness of breath and a cough according to his . He has significant dementia and is a poor historian himself. He was in the [place] years ago, unclear if there is asbestos exposure. 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 She states he has also had issues with orthopnea and trouble laying flat in bed without getting short of breath. He was treated unclear medication at that time without any improvement. He presented the emergency room for continued complaints of cough. She states last night he had actually turned blue for a few seconds while coughing so hard. His chest x-ray here revealed a moderate-sized right pleural effusion. He is seen today in the regular medical floor. He is awake and alert in no acute distress. He is maintaining O2 saturations in the mid 90s on room air. He does have a loose nonproductive cough. No hemoptysis. No significant weight loss. No leukocytosis. No fever. On 05/21/2016, the patient is being seen in follow-up. His condition essentially the same. No significant worsening shortness of breath. No cough or sputum production. No chest pain. The plan is to proceed with a thoracentesis today. The procedure was done at the bedside. Total of 1.1 L of pleural fluid was aspirated from the right lung. The fluid itself was extremely viscous and turbid and dark yellowish in nature and this could be potentially a parapneumonic pleural effusion. Postprocedure chest x-ray showed residual consolidation of the right lung without evidence of any pneumothorax. In fact, the extent of consolidation opacification of the right lower lobe was worse compared to the preoperative thoracentesis. Based on that the CAT scan of the chest will be ordered. Clinically however the patient has no complaints and he is stable for the time being. On 05/22/2016 the patient is resting comfortably in bed. The patient underwent a right lung thoracentesis for a total of 1.1 L of fluid was removed. The fluid was viscous. The fluid chemistry still pending for now. Meanwhile the CAT scan of the chest was also noted and it showed a moderate to large size right-sided pleural effusion that has been somewhat loculated and the patient had evidence of pleural plaquing and pleural thickening consistent with asbestos exposure. Serum LDH is at above 500. My suspicion for a malignant pleural effusion is quite high. Pleural fluid cytology still pending for now. The patient is seen again today 05/23/2016 in follow-up. He is awake and alert in no acute distress. He denies any worsening shortness of breath, cough or congestion. He is anxious to go home. The right-sided pleural effusion that we sent for cytology is pending. It was sent to the [facility] for further evaluation. Objective - Vital Signs Vital signs: Vital Signs Temp 97.0 F L 05/23/16 07:00 Pulse 60 05/23/16 07:00 Resp 16 05/23/16 07:00 BP 134/76 05/23/16 07:00 Pulse Ox 96 05/23/16 07:00 Intake & Output 05/22/16 05/23/16 05/23/16 18:59 06:59 18:59 Intake Total 200 360 Balance 200 360 Intake: Oral 200 360 Other: Voiding Method Toilet Urinal # Voids 2 2 1 # Bowel Movements 0 1 - Exam Head exam was generally normal. There was no scleral icterus or corneal arcus. Mucous membranes were moist.Neck was supple and without jugular venous distension, thyromegaly, or carotid bruits. Carotids were easily palpable bilaterally. There was no adenopathy. Lung sounds are diminished specially in the right lung base along with dullness to percussion.Cardiac exam revealed the PMI to be normally situated and sized. The rhythm was regular and no extrasystoles were noted during several minutes of auscultation. The first and second heart sounds were normal and physiologic splitting of the second heart sound was noted. There were no murmurs, rubs, clicks, or gallops.Abdominal exam revealed normal bowel sounds. The abdomen was soft, non-tender, and without masses, organomegaly, or appreciable enlargement of the abdominal aorta. Examination of the extremities revealed easily palpable radial, femoral and pedal pulses. There was no cyanosis, clubbing or edema. - Labs CBC & Chem 7: 05/20/16 10:22 05/23/16 08:09 Labs: Microbiology - Last 24 Hours (Table) 05/21/16 14:20 Gram Stain - Preliminary Pleural Fluid Body Fluid Culture - Preliminary 05/20/16 12:05 Blood Culture - Preliminary Blood No Growth after 72 hours Assessment and Plan Plan: Impression: #1 Dyspnea with cough secondary to moderate size right pleural effusion suspected malignancy. #2 Remote history of chronic tobacco dependence however quit 34 years ago. 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 #4 Hypertension. #5 Peripheral vascular disease with multiple stent placements in the lower extremities. And previous stent to the aorta. 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 #7 History of prostate cancer. #8 Left groin pain secondary to suspected phlegmon him a no well-formed abscess noted. Currently on Augmentin. #9 Dementia. Plan: The patient was seen and evaluated by Dr. Gamboa. The pleural effusion for cytology is still pending. He is cleared for discharge from the pulmonary standpoint. We'll follow-up in the office in 1 week's time and repeat his chest x-ray then. We should have results back from the [facility] by then as well. The patient's is agreeable and verbalizes understanding. She is however encouraged to call sooner if any recurrence of symptoms or other questions or concerns.
--- NOTE | 2016-05-24 10:34 | DS ---
DATE OF ADMISSION: 05/20/2016 DATE OF DISCHARGE: 05/23/2016 The patient is admitted with hypoxic respiratory failure secondary to pleural effusion. Patient underwent pleural tap on the right side and removed about 1.5 liters, which is bloody, which has significant amount of RBC and 116 nucleated cells and many mesothelial cells. Awaiting final pathology report. 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 Finalization of the reports are pending and patient will follow up with Dr. Gamboa who will discuss the final results and Dr. Negrete as an outpatient. Left groin abscess, which was drained showing MSSA. Patient will be given 10 days of Augmentin for that. Patient is on vancomycin. Patient was seen and examined on the day of discharge. Vitals are stable. PHYSICAL EXAMINATION: GENERAL: The patient is alert and oriented x3, not in any acute distress. Well developed, well nourished. HEENT: Pupils are round and equally reacting to light. EOMI. No scleral icterus. No conjunctival pallor. Normocephalic, atraumatic. No pharyngeal erythema. No thyromegaly. CARDIOVASCULAR: S1 and S2 present. No murmurs, rubs, or gallops. PULMONARY: Chest is clear to auscultation, no wheezing or crackles. ABDOMEN: Soft, nontender, nondistended, normoactive bowel sounds. No palpable organomegaly. MUSCULOSKELETAL: No joint swelling or deformity. EXTREMITIES: No cyanosis, clubbing, or pedal edema. NEUROLOGICAL: Gross neurological examination did not reveal any focal deficits. SKIN: No rashes. There is still a bit of moderate pleural effusion left. ASSESSMENT AND PLAN: 1. Right side pleural effusion. Parapneumonic effusion cannot be ruled out. Anyways patient will be discharged on antibiotics. There is a possibility of mesothelioma. 2. Remote history of nicotine abuse history. 3. Asbestosis. 4. Hypertension. 5. Peripheral vascular disease. 6. Left groin suspected phlegmon versus abscess. 7. Dementia. Patient will be discharged today in stable medical condition to home. Please refer to my depart summary for further details of discharge medications. Patient will follow with Dr. Shin Negrete on May 28 at 10:[address] Constantino Gamboa on June 03 at 10:00 a.m. Activity as tolerated. Cardiac diet. I spent greater than 35 minutes in total discharge process.
== END 2016-05-23 16:16 | disposition home or self-care (01) ==
LOC: EC 09:44 → INTOOBSV 11:46 → 4MS4W 11:46
PROVIDERS: ADMIT Family Medicine; ATTEND Family Medicine
DX: J90 Pleural effusion, not elsewhere classified (principal); L02.214 Cutaneous abscess of groin; B95.61 Methicillin susceptible Staphylococcus aureus infection as the cause of diseases classified elsewhere; J61 Pneumoconiosis due to asbestos and other mineral fibers; Z87.891 Personal history of nicotine dependence; I10 Essential (primary) hypertension; I73.9 Peripheral vascular disease, unspecified; F03.90 Unspecified dementia, unspecified severity, without behavioral disturbance, psychotic disturbance, mood disturbance, and anxiety; G47.30 Sleep apnea, unspecified; J44.9 Chronic obstructive pulmonary disease, unspecified; J96.91 Respiratory failure, unspecified with hypoxia; Z77.090 Contact with and (suspected) exposure to asbestos; Z79.82 Long term (current) use of aspirin; Z79.899 Other long term (current) drug therapy; Z86.73 Personal history of transient ischemic attack (TIA), and cerebral infarction without residual deficits; Z86.79 Personal history of other diseases of the circulatory system; Z79.02 Long term (current) use of antithrombotics/antiplatelets; Z79.52 Long term (current) use of systemic steroids
CPT/HCPCS: 32554; 96361 ×4; 96365 ×2; 96366 ×6; 99285 ×2; 36415; 88305; 80048 ×3; 82945; 89050; 83615; 84155; 85025; 80202; 88342 ×2; 87040; 88341 ×2; 87070 ×2; 87205 ×2; 87077; 87186; 88344; 84157; 71010; 71020; 76882; 71260; G0378 ×4; J3370 ×4; Q9967

== ENCOUNTER → 2016-06-28 | Outpatient (CLI) | payer MEDICARE, BC ==
--- NOTE | 2016-06-29 10:46 | PE ---
EXAMINATION TYPE: PET CT fusion skull to thigh DATE OF EXAM: 06/28/2016 6:28 PM COMPARISON: CT chest 05/21/2016 Prior PET/CT: None HISTORY: Malignant pleural effusion , history of prostate cancer TECHNIQUE: Following the intravenous administration of 14.23 mCi of F-18 FDG, whole body images are performed from the skull base to the midthigh. Images are reviewed on the computer in the coronal, a xial, and sagittal planes. Reconstructed rotating images are created on independent workstation and reviewed on the computer. A localization and attenuation correction CT is performed in conjunction with the PET scan. DLP: 364.89 mGycm SCAN: Initial Blood glucose: 108 mg/dL Average Mediastinum SUV: 1.9 Average Liver SUV: 2.6 FINDINGS: NECK: No abnormal uptake THORAX: No abnormal uptake. The pleural effusion has an SUV value in the range of 0 point for. ABDOMEN: No abnormal uptake PELVIS: There is some uptake within the left gluteus minimus muscle with SUV of 4.6. This likely rela vidya to muscular activity. There is some focal uptake within the region of the cecum. OSSEOUS STRUCTURES: No abnormal uptake LOCALIZATION CT: There is a large right pleural effusion. This may have some shift of the mediastinum towards the left. COMPARISON: No significant pleural fluid change. Prior aneurysm repair. Surgical clips are in the lo wer pelvis. Prostate is slightly prominent. No suspicious lytic or sclerotic lesions are identified. Degenerative facet changes are present. Degenerative disc changes thoracolumbar junction is present. IMPRESSION: 1. No primary source for the malignant pleural effusion is identified. Significant abnormal uptake is not identified during this examination. Large pleural effusion remains present. Primary and metasta tic prostate cancer not clearly identified based on the PET images.
== END | disposition home or self-care (01) ==
LOC: RADPETMAIN 11:34
PROVIDERS: ATTEND Internal Medicine Hematology & Oncology
DX: C80.1 Malignant (primary) neoplasm, unspecified (principal); J91.0 Malignant pleural effusion; Z85.46 Personal history of malignant neoplasm of prostate
CPT/HCPCS: 78815; A9552

== ENCOUNTER 2016-07-04 09:55 | Day surgery (SDC) | payer MEDICARE, BC ==
[2016-07-04 10:41] LABS: Mean Platelet Volume 7.6
[2016-07-04 11:14] LABS: INR 1.2 (<1.1); Prothrombin Time 11.5 sec (9.0-12.0)
--- NOTE | 2016-07-04 12:12 | US ---
EXAMINATION TYPE: US thoracentesis DATE OF EXAM: 07/04/2016 12:04 PM COMPARISON: NONE HISTORY: Right pleural effusion PROCEDURE: The risks, applications, benefits and alternatives, were discussed with the patient and questions wer e answered. Informed consent was obtained. The patient was placed sitting upright position on the fl uoroscopic table, prepped and draped in the usual sterile fashion. Access into the right pleural space was achieved and there is removal of approximately 1.2 L of serou s fluid. The patient was stable throughout procedure and remained stable upon discharge from radiology. All e lements of maximal barrier and sterile technique were utilized. Sample sent to pathology. IMPRESSION: 1. Successful ultrasound-guided right thoracentesis.
--- NOTE | 2016-07-04 12:19 | XR ---
EXAMINATION TYPE: XR chest 1V portable DATE OF EXAM: 07/04/2016 12:11 PM COMPARISON: NONE HISTORY: Post right thoracentesis TECHNIQUE: Single frontal view of the chest is obtained. FINDINGS: No sizable pneumothorax. There is persistent consolidation and right-sided pleural fluid. The heart is stable in size. Cardiac device noted. Arthropathy of the shoulders seen. IMPRESSION: 1. No pneumothorax postthoracentesis 2. Persistent pleural fluid and consolidation on the right.
[2016-07-04 13:02] VITALS: RESP 16
[2016-07-04 14:08] VITALS: TEMP 97.8
[2016-07-04 14:11] VITALS: BP 134/70; PULSE 60
[2016-07-04 19:05] LABS: RBC, Body Fluid 2108 /uL
[2016-07-04 19:11] LABS: Body Fluid Comment Many Mesothelial
[2016-07-04 21:01] LABS: Glucose, BF Source Pleural Fluid; LDH, Body Fluid Source Pleural Fluid; T. Protein, Body Fluid Source Pleural Fluid; Total Protein, Body Fluid 2700 mg/dL
== END 2016-07-04 13:35 | disposition home or self-care (01) ==
LOC: RADPROMAIN 09:55
PROVIDERS: ATTEND Internal Medicine Critical Care Medicine
DX: J90 Pleural effusion, not elsewhere classified (principal); Z79.02 Long term (current) use of antithrombotics/antiplatelets; Z79.82 Long term (current) use of aspirin
CPT/HCPCS: 32555; 36415; 71010; 82150; 82945; 83615; 84157; 85049; 85610; 88108; 88305; 88341; 88342; 88344; 89050

== ENCOUNTER 2016-07-27 20:35 | Inpatient (IN) | payer MEDICARE, BC ==
--- NOTE | 2016-07-27 21:35 | ED ---
General Adult HPI - General Chief complaint: Shortness of Breath Stated complaint: SOB Time Seen by Provider: 07/27/16 21:00 Source: patient, RN notes reviewed Mode of arrival: wheelchair Limitations: no limitations - History of Present Illness Initial comments: This is a 89-year-old male with past medical history significant for prostate cancer and severe dementia. According to the the patient has had a thoracentesis on the right side twice before. Patient also became much more short of breath today according to the . She states he was also becoming much weaker but he hasn't been eating good lately at all. Patient denies any recent fever chills or cough. Patient denies any chest pain or palpitations. Patient denies abdominal pain patient denies nausea vomiting or diarrhea. Patient denies any headache patient denies numbness weakness. Patient denies lightheadedness dizziness or near syncopal episode. Patient denies any recent injury or trauma - Related Data Home Medications Medication Instructions Recorded Confirmed Aspirin 81 mg PO HS 05/20/16 07/27/16 Atenolol [Tenormin] 50 mg PO HS 05/20/16 07/27/16 Calcium Carbonate/Vitamin D3 1 tab PO DAILY 05/20/16 07/27/16 [Calcium 600-Vit D3 200 Tablet] Clopidogrel [Plavix] 75 mg PO HS 05/20/16 07/27/16 Cyanocobalamin (Vitamin B-12) 1,000 mcg PO DAILY 05/20/16 07/27/16 [Vitamin B-12] Fludrocortisone [Florinef] 0.1 mg PO DAILY 05/20/16 07/27/16 Lisinopril [Zestril] 10 mg PO DAILY 05/20/16 07/27/16 Lutein 10 mg PO HS 05/20/16 07/27/16 amLODIPine [Norvasc] 5 mg PO HS 05/20/16 07/27/16 Memantine HCl/Donepezil HCl 1 cap PO DAILY 06/30/16 07/27/16 [Namzaric 28 mg-10 mg Capsule] Allergies Allergy/AdvReac Type Severity Reaction Status Date / Time No Known Allergies Allergy Verified 07/27/16 21:15 Review of Systems ROS Statement: Those systems with pertinent positive or pertinent negative responses have been documented in the HPI. ROS Other: All systems not noted in ROS Statement are negative. Past Medical History Past Medical History: Cancer, COPD, CVA/TIA, Dementia, Eye Disorder, Hypertension, Memory Impairment, Sleep Apnea/CPAP/BIPAP, Vascular Disorder Additional Past Medical History / Comment(s): CVA with blindness R eye, prostate CA treated with hormones, vertigo but spouse thinks might be due to position changes, JUAN M with no CPAP use. History of Any Multi-Drug Resistant Organisms: None Reported Past Surgical History: Appendectomy, Pacemaker Additional Past Surgical History / Comment(s): AAA repair, 7 stents spouse states all in his aorta and bilateral legs, L caratid endartectomy, pacemaker, colonoscopy, thoracentesis Past Anesthesia/Blood Transfusion Reactions: No Reported Reaction Type of Cardiac Device: Permanent Pacemaker Device Placement Date:: 2009 Past Psychological History: No Psychological Hx Reported Additional Psychological History / Comment(s): Pt has dementia and memory loss. He resides with his spouse of 17yrs. He uses no assistive device. He no longer has a [place] driver's license. His spouse drives. He is not receiving any home care. Smoking Status: Former smoker Past Alcohol Use History: None Reported Additional Past Alcohol Use History / Comment(s): Pt smoked from about 1950 to about 1979. Past Drug Use History: None Reported - Past Family History Mother Family Medical History: Cancer Additional Family Medical History / Comment(s): Mother lived to be close to 90. Father Family Medical History: Dementia Additional Family Medical History / Comment(s): Father in his late 80's. General Exam - General Exam Comments Initial Comments: GENERAL: Patient is well-developed and well-nourished. Patient is nontoxic and well- hydrated and is in no acute distress. ENT: Neck is soft and supple. No significant lymphadenopathy is noted. Oropharynx is clear. Moist mucous membranes. Neck has full range of motion without eliciting any pain. EYES: The sclera were anicteric and conjunctiva were pink and moist. Extraocular movements were intact and pupils were equal round and reactive to light. Eyelids were unremarkable. PULMONARY: Diminished breath sounds on the right CARDIOVASCULAR: There is a regular rate and rhythm without any murmurs gallops or rubs. ABDOMEN: Soft and nontender with normal bowel sounds. No palpable organomegaly was noted. There is no palpable pulsatile mass. SKIN: Skin is clear with no lesions or rashes and otherwise unremarkable. NEUROLOGIC: Patient is alert and oriented 1 Cranial nerves II through XII are grossly intact. Motor and sensory are also intact. Normal speech, volume and content. Symmetrical smile. MUSCULOSKELETAL: Normal extremities with adequate strength and full range of motion. No lower extremity swelling or edema. No calf tenderness. LYMPHATICS: No significant lymphadenopathy is noted PSYCHIATRIC: Normal psychiatric evaluation. Normal interpersonal interactions appears functionally intact in deals appropriately with others. No signs of depression. No signs of anxiety. Limitations: no limitations Course Vital Signs 07/27/16 07/27/16 07/27/16 20:44 21:18 21:21 Temperature 96.9 F L Pulse Rate 60 62 Respiratory 22 22 22 Rate Blood Pressure 91/50 O2 Sat by Pulse 88 L 91 L Oximetry 07/27/16 22:30 Temperature Pulse Rate 58 L Respiratory 20 Rate Blood Pressure 113/70 O2 Sat by Pulse 94 L Oximetry Medical Decision Making - Medical Decision Making EKG shows atrial paced rhythm at 60 bpm. It was 202 QRS is 112 QT interval 446 QTC is 446. Patient's EKG shows no ST segment elevation or depression - Lab Data Result diagrams: 07/27/16 21:05 07/27/16 21:05 Lab Results 07/27/16 07/27/16 07/27/16 Range/Units 21:05 21:05 21:05 WBC 8.9 (3.8-10.6) k/uL RBC 4.38 (4.30-5.90) m/uL Hgb 14.5 (13.0-17.5) gm/dL Hct 43.8 (39.0-53.0) % MCV 99.9 (80.0-100.0) fL MCH 33.0 (25.0-35.0) pg MCHC 33.0 (31.0-37.0) g/dL RDW 14.6 (11.5-15.5) % Plt Count 212 (150-450) k/uL Neutrophils % 74 % Lymphocytes % 12 % Monocytes % 8 % Eosinophils % 5 % Basophils % 1 % Neutrophils # 6.6 (1.3-7.7) k/uL Lymphocytes # 1.0 (1.0-4.8) k/uL Monocytes # 0.7 (0-1.0) k/uL Eosinophils # 0.4 (0-0.7) k/uL Basophils # 0.0 (0-0.2) k/uL Macrocytosis Slight PT (9.0-12.0) sec INR (<1.1) APTT (22.0-30.0) sec Sodium 142 (137-145) mmol/L Potassium 4.2 (3.5-5.1) mmol/L Chloride 107 (98-107) mmol/L Carbon Dioxide 22 (22-30) mmol/L Anion Gap 13 mmol/L BUN 21 H (9-20) mg/dL Creatinine 1.00 (0.66-1.25) mg/dL Est GFR (MDRD) Af Amer >60 (>60 ml/min/1.73 sqM) Est GFR (MDRD) Non-Af >60 (>60 ml/min/1.73 sqM) Glucose 104 H (74-99) mg/dL Calcium 9.5 (8.4-10.2) mg/dL Magnesium 2.1 (1.6-2.3) mg/dL Total Bilirubin 0.4 (0.2-1.3) mg/dL AST 27 (17-59) U/L ALT 27 (21-72) U/L Alkaline Phosphatase 116 (38-126) U/L Total Creatine Kinase 28 L (55-170) U/L CK-MB (CK-2) 1.4 (0.0-2.4) ng/mL CK-MB (CK-2) Rel Index 5.0 Troponin I <0.012 (0.000-0.034) ng/mL Total Protein 6.5 (6.3-8.2) g/dL Albumin 3.7 (3.5-5.0) g/dL Urine Color Urine Appearance (Clear) Urine pH (5.0-8.0) Ur Specific [place] (1.001-1.035) Urine Protein (Negative) Urine Glucose (UA) (Negative) Urine Ketones (Negative) Urine Blood (Negative) Urine Nitrite (Negative) Urine Bilirubin (Negative) Urine Urobilinogen (<2.0) mg/dL Ur Leukocyte Esterase (Negative) Urine RBC (0-5) /hpf Urine WBC (0-5) /hpf Ur Squamous Epith Cells (0-4) /hpf Hyaline Casts (0-2) /lpf Urine Mucus (None) /hpf 07/27/16 07/27/16 Range/Units 21:05 22:25 WBC (3.8-10.6) k/uL RBC (4.30-5.90) m/uL Hgb (13.0-17.5) gm/dL Hct (39.0-53.0) % MCV (80.0-100.0) fL MCH (25.0-35.0) pg MCHC (31.0-37.0) g/dL RDW (11.5-15.5) % Plt Count (150-450) k/uL Neutrophils % % Lymphocytes % % Monocytes % % Eosinophils % % Basophils % % Neutrophils # (1.3-7.7) k/uL Lymphocytes # (1.0-4.8) k/uL Monocytes # (0-1.0) k/uL Eosinophils # (0-0.7) k/uL Basophils # (0-0.2) k/uL Macrocytosis PT 12.0 (9.0-12.0) sec INR 1.2 (<1.1) APTT 23.5 (22.0-30.0) sec Sodium (137-145) mmol/L Potassium (3.5-5.1) mmol/L Chloride (98-107) mmol/L Carbon Dioxide (22-30) mmol/L Anion Gap mmol/L BUN (9-20) mg/dL Creatinine (0.66-1.25) mg/dL Est GFR (MDRD) Af Amer (>60 ml/min/1.73 sqM) Est GFR (MDRD) Non-Af (>60 ml/min/1.73 sqM) Glucose (74-99) mg/dL Calcium (8.4-10.2) mg/dL Magnesium (1.6-2.3) mg/dL Total Bilirubin (0.2-1.3) mg/dL AST (17-59) U/L ALT (21-72) U/L Alkaline Phosphatase (38-126) U/L Total Creatine Kinase (55-170) U/L CK-MB (CK-2) (0.0-2.4) ng/mL CK-MB (CK-2) Rel Index Troponin I (0.000-0.034) ng/mL Total Protein (6.3-8.2) g/dL Albumin (3.5-5.0) g/dL Urine Color Yellow Urine Appearance Cloudy (Clear) Urine pH 6.0 (5.0-8.0) Ur Specific [place] 1.025 (1.001-1.035) Urine Protein 1+ H (Negative) Urine Glucose (UA) Negative (Negative) Urine Ketones Trace H (Negative) Urine Blood Negative (Negative) Urine Nitrite Negative (Negative) Urine Bilirubin Negative (Negative) Urine Urobilinogen 3.0 (<2.0) mg/dL Ur Leukocyte Esterase Trace H (Negative) Urine RBC 5 (0-5) /hpf Urine WBC 5 (0-5) /hpf Ur Squamous Epith Cells 1 (0-4) /hpf Hyaline Casts 6 H (0-2) /lpf Urine Mucus Few H (None) /hpf Disposition Clinical Impression: Dyspnea, Pleural effusion Disposition: ADMITTED IP TO THIS HOSP Referrals: Shin Negrete MD [Primary Care Provider] - 1-2 days Time of Disposition: 23:01
[2016-07-27 21:48] LABS: Basophils % (A) 1 %; CH 33.3; CHCM 33.5; Eosinophils # (A) 0.4 k/uL (0-0.7); Eosinophils % (A) 5 %; HCT 43.8 % (39.0-53.0); HDW 2.58; HGB 14.5 gm/dL (13.0-17.5); Luc # (Auto) 0.18; Luc % (Auto) 2; Lymphocytes % (A) 12 %; MCV 99.9 fL (80.0-100.0); Macrocytosis Slight; Mean Platelet Volume 7.7; Monocytes # (A) 0.7 k/uL (0-1.0); Monocytes % (A) 8 %; Neutrophils # (A) 6.6 k/uL (1.3-7.7); Neutrophils % (A) 74 %; RBC 4.38 m/uL (4.30-5.90); RDW 14.6 % (11.5-15.5); WBC 8.9 k/uL (3.8-10.6); WBC (Perox) 8.68
--- NOTE | 2016-07-27 21:55 | XR ---
EXAMINATION TYPE: XR chest 2V DATE OF EXAM: 07/27/2016 9:48 PM COMPARISON: 07/04/2016 HISTORY: 89-year-old male difficulty breathing, had fluid removed from the lungs. TECHNIQUE: AP and lateral views FINDINGS: Right heart margin remains obscured by adjacent pleural-parenchymal disease. Continued moderate to la rge right pleural effusion with adjacent opacity. This seems to have slight mass effect with a minima l leftward shift of the heart. Left-sided anterior chest wall pacemaker generator with right atrial a nd right ventricular leads. Some pleural plaques redemonstrated along the lateral left hemithorax. IMPRESSION: Continued moderate to large right pleural effusion with adjacent atelectasis and/or consolidation. Th is has some mass effect shifting the heart slightly towards the left. Pleural plaques suggesting prior asbestos exposure.
[2016-07-27 21:56] LABS: INR 1.2 (<1.1); Partial Thromboplastin Time 23.5 sec (22.0-30.0)
[2016-07-27 22:08] LABS: ALT 27 U/L (21-72); AST 27 U/L (17-59); Alkaline Phosphatase 116 U/L (38-126); Anion Gap 13 mmol/L; Blood Urea Nitrogen 21 mg/dL (9-20); Calcium 9.5 mg/dL (8.4-10.2); Carbon Dioxide 22 mmol/L (22-30); Chloride 107 mmol/L (98-107); Glucose 104 mg/dL (74-99); Magnesium 2.1 mg/dL (1.6-2.3); Non-African American GFR(MDRD) >60 (>60 ml/min/1.73 sqM); Potassium 4.2 mmol/L (3.5-5.1); Sodium 142 mmol/L (137-145); Total Bilirubin 0.4 mg/dL (0.2-1.3); Total Protein 6.5 g/dL (6.3-8.2)
[2016-07-27 22:13] LABS: Creatine Kinase 28 U/L (55-170)
[2016-07-27 22:26] LABS: Creatine Kinase MB 1.4 ng/mL (0.0-2.4); Troponin I <0.012 ng/mL (0.000-0.034)
[2016-07-27 22:45] LABS: Appearance,Urine Cloudy (Clear); Bilirubin,Urine Negative (Negative); Glucose,Urine (UA) Negative (Negative); Ketones,Urine Trace (Negative); Leukocyte Esterase,Urine Trace (Negative); Mucus,Urine Few /hpf; Nitrite,Urine Negative (Negative); Particle Count 10564; Protein,Urine 1+ (Negative); RBC,Urine 5 /hpf (0-5); Specific Gravity,Urine 1.025 (1.001-1.035); Squamous Epithelial Cell,Urine 1 /hpf (0-4); UA Billing (MACRO vs. MICRO) MICRO; WBC,Urine 5 /hpf (0-5)
[2016-07-28] MEDS: SODIUM CHLORIDE 0.9% 1,000 ML IV ONE ×2 (04:25→09:34)
[2016-07-28 09:20] VITALS: BMI 24.3
--- NOTE | 2016-07-28 13:55 | HP ---
I am covering for Dr. Shin Negrete. DATE OF ADMISSION: The chief complaints are shortness of breath and difficulty in micturition. HISTORY OF PRESENT ILLNESS: This is an 89-year-old please gentleman with a past medical history of multiple medical issues including COPD, history of CVA, TIA, dementia, history of hypertension, memory impairment, sleep apnea, appendectomy, pacemaker also was previously admitted with right-sided pleural effusion. The patient apparently had multiple paracentesis and currently the patient came in with shortness of breath and as well as difficulty in micturition. Patient came to [facility] and was admitted for further evaluation and treatment. The patient has another right pleural effusion, which is slightly worsened. Otherwise, there is no history of fever, chills or rigors. No history of headache, loss of consciousness or seizures. Patient also had infected lesion in the left groin. The patient has significant dementia, unable to give coordinated history. Most history is taken from the discussion with the patient's at the bedside and also staff and also to review of the chart. PAST MEDICAL HISTORY: COPD, CVA, TIA, dementia, history of hypertension. History of memory impairment. History of appendectomy, pacemaker. Medications prior to admission include, home medications: 1. Norvasc 5 mg p.o. q.h.s. 2. Namzaric 28/10 one p.o. daily. 3. Lutein 10 mg q.h.s. 4. Zestril 10 mg p.o. daily. 5. Florinef 0.1 daily. 6. Vitamin B12 one thousand mcg p.o. daily. 7. Plavix 75 mg p.o. q.h.s. 8. Vitamin D3 one tablet p.o. daily. 9. Tenormin 50 mg p.o. q.h.s. 10. Aspirin 81 mg q.h.s. Allergies are none. FAMILY HISTORY: History of cancer in the family. SOCIAL HISTORY: Previous history of smoking, no history of current smoker, alcohol none. Review of systems could not be taken because of dementia. PHYSICAL EXAM: Patient is conscious. Pulse 66, blood pressure 130/60, respirations 20, temperature 98.4, pulse ox 93% on room air. HEENT: Conjunctivae normal, oral mucosa moist. NECK: No jugular venous distention. No thyroid enlargement, no carotid bruit. CARDIOVASCULAR SYSTEM: S1, S2, muffled. No S3, no S4. RESPIRATORY: Breath sounds diminished at the bases, a few scattered rhonchi, no crackles. Persistent diminished mostly on the right side. Abdomen is soft, nontender. No mass palpable. No guarding. No rigidity. The bladder is not palpable. Legs: No edema. No swelling. NERVOUS SYSTEM: Higher functions as mentioned earlier, moves all 4 limbs. No focal motor deficits. LYMPHATICS: No lymph node enlargement in the neck, axillae or groin. Otherwise left groin exam, the small area of induration and pigmentation present which has some discharge and pus according to the family. OTHER JOINTS: No active deforming arthropathy. LAB INVESTIGATIONS: CBC within normal limits. BUN is 21 and glucose 104, creatinine kinase is 28. Chest x-ray which was personally reviewed by me shows significant pleural effusion on the right side with some mediastinal shift and bilateral shadows also noted. ASSESSMENT: 1. 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 2. 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 3. History of chronic obstructive pulmonary disease. 4. History of cerebrovascular accident, transient ischemic attack. 5. History of dementia. 6. History of hypertension. 7. History of memory impairment. 8. History of vascular disorder. 9. History of prostate cancer treated with the home. 10. History of sleep apnea with no CPAP. 11. History of pacemaker. 12. History of abdominal aortic aneurysm repair. 13. History of aortic stents. 14. Peripheral vascular disease. 15. Left carotid endarterectomy. 16. History of thoracocentesis. 17. History of dementia. 18. Gait dysfunction. 19. Increased BUN. 20. Left groin cellulitis or abscess. 21. No code, no cardiopulmonary resuscitator, no ventilator. RECOMMENDATION: In this 89-year-old gentleman who presented with multiple complex medical issues, will monitor the patient closely. Continue with the current medications, continue with the symptomatic treatment, initiate IV antibiotics. Continue with the rest of the home medications, DVT prophylaxis. PT, OT evaluation. Guarded prognosis because of multiple complex medical issues. Further recommendations to follow. A copy of this will be forwarded to Dr. Negrete who is the primary physician. Dr. Shin Negrete will be following. [facility]
--- NOTE | 2016-07-28 15:52 | P.GSCN ---
History of Present Illness Consult date: 07/28/16 Reason for Consult: Recurrent right sided pleural effusion Requesting physician: Eliceo Murray History of present illness: This 89 year old gentleman with a history of COPD, CVA, advanced dementia, HTN, JUAN M and PPM implantation presented to the ER with increased shortness of breat, agitation, decreased urine output, and a headache. He had an xray demonstrating significant right sided pleural effusion. He has had effusions in the past and has had thoracentesis x 2, most recently in June 2016. 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 Cardiothoracic surgery was consulted for management of his recurrent pleural effusion. Review of Systems A 14 point review of systems was completed and was negative except as noted. - Constitutional Reports as per HPI - Respiratory Reports as per HPI Past Medical History Past Medical History: Cancer, COPD, CVA/TIA, Dementia, Eye Disorder, Hypertension, Memory Impairment, Sleep Apnea/CPAP/BIPAP, Vascular Disorder Additional Past Medical History / Comment(s): CVA with blindness R eye, prostate CA treated with hormones, vertigo but spouse thinks might be due to position changes, JUAN M with no CPAP use. History of Any Multi-Drug Resistant Organisms: None Reported Past Surgical History: Appendectomy, Pacemaker Additional Past Surgical History / Comment(s): AAA repair, 7 stents spouse states all in his aorta and bilateral legs, L caratid endartectomy, pacemaker, colonoscopy, thoracentesis Past Anesthesia/Blood Transfusion Reactions: No Reported Reaction Type of Cardiac Device: Permanent Pacemaker Device Placement Date:: 2009 Past Psychological History: No Psychological Hx Reported Additional Psychological History / Comment(s): Pt has dementia and memory loss. He resides with his spouse of 17yrs. He uses no assistive device. 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 He is not receiving any home care. Smoking Status: Former smoker Past Alcohol Use History: None Reported Additional Past Alcohol Use History / Comment(s): Pt smoked from about 1950 to about 1980. Past Drug Use History: None Reported - Past Family History Mother Family Medical History: Cancer Additional Family Medical History / Comment(s): Mother lived to be close to 90. Father Family Medical History: Dementia Additional Family Medical History / Comment(s): Father in his late 80's. Medications and Allergies Home Medications Medication Instructions Recorded Confirmed Type Aspirin 81 mg PO HS 05/20/16 07/27/16 History Atenolol [Tenormin] 50 mg PO HS 05/20/16 07/27/16 History Calcium Carbonate/Vitamin D3 1 tab PO DAILY 05/20/16 07/27/16 History [Calcium 600-Vit D3 200 Tablet] Clopidogrel [Plavix] 75 mg PO HS 05/20/16 07/27/16 History Cyanocobalamin (Vitamin B-12) 1,000 mcg PO DAILY 05/20/16 07/27/16 History [Vitamin B-12] Fludrocortisone [Florinef] 0.1 mg PO DAILY 05/20/16 07/27/16 History Lisinopril [Zestril] 10 mg PO DAILY 05/20/16 07/27/16 History Lutein 10 mg PO HS 05/20/16 07/27/16 History amLODIPine [Norvasc] 5 mg PO HS 05/20/16 07/27/16 History Memantine HCl/Donepezil HCl 1 cap PO DAILY 06/30/16 07/27/16 History [Namzaric 28 mg-10 mg Capsule] Allergies Allergy/AdvReac Type Severity Reaction Status Date / Time No Known Allergies Allergy Verified 07/27/16 21:15 Surgical - Exam Vital Signs Temp Pulse Resp BP Pulse Ox 96.9 F L 60 22 91/50 88 L 07/27/16 20:44 07/27/16 20:44 07/27/16 20:44 07/27/16 20:44 07/27/16 20:44 - General well developed, well nourished, no distress - Eyes PERRL, normal ocular movement - Neck trachea midline - Respiratory Lung sounds - Cardiovascular Rhythm: regular - Abdomen Abdomen: soft, non tender, bowel sounds - Genitourinary deferred - Rectum deferred - Integumentary no rash - Neurologic disoriented - Psychiatric oriented to person Results - Labs 07/27/16 21:05 07/27/16 21:05 Abnormal Lab Results - Last 24 Hours (Table) 07/27/16 07/27/16 07/27/16 Range/Units 21:05 21:05 22:25 BUN 21 H (9-20) mg/dL Glucose 104 H (74-99) mg/dL Total Creatine Kinase 28 L (55-170) U/L Urine Protein 1+ H (Negative) Urine Ketones Trace H (Negative) Ur Leukocyte Esterase Trace H (Negative) Hyaline Casts 6 H (0-2) /lpf Urine Mucus Few H (None) /hpf Diabetes panel 07/27/16 Range/Units 21:05 Sodium 142 (137-145) mmol/L Potassium 4.2 (3.5-5.1) mmol/L Chloride 107 (98-107) mmol/L Carbon Dioxide 22 (22-30) mmol/L BUN 21 H (9-20) mg/dL Creatinine 1.00 (0.66-1.25) mg/dL Glucose 104 H (74-99) mg/dL Calcium 9.5 (8.4-10.2) mg/dL AST 27 (17-59) U/L ALT 27 (21-72) U/L Alkaline Phosphatase 116 (38-126) U/L Total Protein 6.5 (6.3-8.2) g/dL Albumin 3.7 (3.5-5.0) g/dL Calcium panel 07/27/16 Range/Units 21:05 Calcium 9.5 (8.4-10.2) mg/dL Albumin 3.7 (3.5-5.0) g/dL Pituitary panel 07/27/16 Range/Units 21:05 Sodium 142 (137-145) mmol/L Potassium 4.2 (3.5-5.1) mmol/L Chloride 107 (98-107) mmol/L Carbon Dioxide 22 (22-30) mmol/L BUN 21 H (9-20) mg/dL Creatinine 1.00 (0.66-1.25) mg/dL Glucose 104 H (74-99) mg/dL Calcium 9.5 (8.4-10.2) mg/dL Adrenal panel 07/27/16 Range/Units 21:05 Sodium 142 (137-145) mmol/L Potassium 4.2 (3.5-5.1) mmol/L Chloride 107 (98-107) mmol/L Carbon Dioxide 22 (22-30) mmol/L BUN 21 H (9-20) mg/dL Creatinine 1.00 (0.66-1.25) mg/dL Glucose 104 H (74-99) mg/dL Calcium 9.5 (8.4-10.2) mg/dL Total Bilirubin 0.4 (0.2-1.3) mg/dL AST 27 (17-59) U/L ALT 27 (21-72) U/L Alkaline Phosphatase 116 (38-126) U/L Total Protein 6.5 (6.3-8.2) g/dL Albumin 3.7 (3.5-5.0) g/dL - Imaging Chest x-ray: image reviewed Assessment and Plan (1) Pleural effusion Status: Acute Plan: The patient was seen and examined with his at the bedside. Diagnostics were reviewed. 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 Case discussed with Dr. Moise, who agrees that the patient is not a candidate for surgical intervention. Thank you Dr. Murray for the consult. Time with Patient: Greater than 30
--- NOTE | 2016-07-28 16:32 | P.CONS ---
History of Present Illness - Reason for Consult Consult date: 07/28/16 prostate cancer, malignant pleural effusion Requesting physician: Glynn Casiano - Chief Complaint CHANCE - History of Present Illness Mr. Brandt is a very pleasant male pt of Dr. Allred who was brought to the hospital for evaluation of progressive SOB, CHANCE and orthopnea. Pt is confused, does not know why he is here in the hospital. He denies CHANCE, pain, nausea, hunger or need to go to the bathroom. He was unable to communicate any other info, rest is taken from pt chart and history. Pt had c/o of progressive SOB as well as right sided pleuritic, so he had CT chest dated May 21, 2016, he was found to have massive right pleural effusion and cardiomegaly. Pt had U/S-guided thoracentesis on 05/21/[address] Gamboa, cytology revealed atypical epitheloid cells suspicious, but not diagnostic, of malignancy ( Reviewed at [facility]). He had another thoracentesis on 07/04/16 with same non-diagnostic results, also reviewed by Rishi. Pt had a PET on 06/29 with no source of malignancy identified, there was some increased activity in the Pleural space, but nowhere else to suggest primary. Dr. Gamboa has seen the pt and started him on home O2. Pt was diagnosed with Prostate cancer 3 years ago and treated with LHRH agonists twice but, none in last year according to . PSA was mildly elevated to 9. He was last seen by Dr. Allred on 07/10/16 with plans to resume LHRH therapy-which he has done. Pt was seen by Dr. Hidalgo and had Niurka on 01/23. Pt cannot be started on any additional treatment as there is no pathological confirmation of source of the recurrent effusion. Review of Systems ROS unobtainable: due to mental status Past Medical History Past Medical History: Cancer, COPD, CVA/TIA, Dementia, Eye Disorder, Hypertension, Memory Impairment, Sleep Apnea/CPAP/BIPAP, Vascular Disorder Additional Past Medical History / Comment(s): CVA with blindness R eye, prostate CA treated with hormones, vertigo but spouse thinks might be due to position changes, JUAN M with no CPAP use. History of Any Multi-Drug Resistant Organisms: None Reported Past Surgical History: Appendectomy, Pacemaker Additional Past Surgical History / Comment(s): AAA repair, 7 stents spouse states all in his aorta and bilateral legs, L caratid endartectomy, pacemaker, colonoscopy, thoracentesis Past Anesthesia/Blood Transfusion Reactions: No Reported Reaction Type of Cardiac Device: Permanent Pacemaker Device Placement Date:: 2009 Past Psychological History: No Psychological Hx Reported Additional Psychological History / Comment(s): Pt has dementia and memory loss. He resides with his spouse of 17yrs. He uses no assistive device. 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 He is not receiving any home care. Smoking Status: Former smoker Past Alcohol Use History: None Reported Additional Past Alcohol Use History / Comment(s): Pt smoked from about 1950 to about 1979. Past Drug Use History: None Reported - Past Family History Mother Family Medical History: Cancer Additional Family Medical History / Comment(s): Mother lived to be close to 90. Father Family Medical History: Dementia Additional Family Medical History / Comment(s): Father in his late 80's. Medications and Allergies Home Medications Medication Instructions Recorded Confirmed Type Aspirin 81 mg PO HS 05/20/16 07/27/16 History Atenolol [Tenormin] 50 mg PO HS 05/20/16 07/27/16 History Calcium Carbonate/Vitamin D3 1 tab PO DAILY 05/20/16 07/27/16 History [Calcium 600-Vit D3 200 Tablet] Clopidogrel [Plavix] 75 mg PO HS 05/20/16 07/27/16 History Cyanocobalamin (Vitamin B-12) 1,000 mcg PO DAILY 05/20/16 07/27/16 History [Vitamin B-12] Fludrocortisone [Florinef] 0.1 mg PO DAILY 05/20/16 07/27/16 History Lisinopril [Zestril] 10 mg PO DAILY 05/20/16 07/27/16 History Lutein 10 mg PO HS 05/20/16 07/27/16 History amLODIPine [Norvasc] 5 mg PO HS 05/20/16 07/27/16 History Memantine HCl/Donepezil HCl 1 cap PO DAILY 06/30/16 07/27/16 History [Namzaric 28 mg-10 mg Capsule] Allergies Allergy/AdvReac Type Severity Reaction Status Date / Time No Known Allergies Allergy Verified 07/27/16 21:15 Physical Exam Vitals: Vital Signs Temp Pulse Pulse Resp BP BP Pulse Ox 07/28/16 12:22 93 L 07/28/16 07:00 98.5 F 66 20 130/60 93 L 07/28/16 00:30 98.4 F 61 20 141/72 95 07/27/16 23:40 98.0 F 68 22 132/68 96 07/27/16 23:00 98.2 F 60 20 158/79 98 07/27/16 22:30 58 L 20 113/70 94 L 07/27/16 21:21 62 22 91 L 07/27/16 21:18 22 07/27/16 20:44 96.9 F L 60 22 91/50 88 L Intake and Output 07/28/16 07/28/16 07/28/16 06:59 14:59 22:59 Intake Total 10 Balance 10 Intake: Intake, IV Titration 10 Amount Sodium Chloride 0.9% 1, 10 000 ml @ 20 mls/hr IV . Q24H ONE Rx#:[id number] Other: Voiding Method Urinal Weight 74.843 kg 74.843 kg Patient Weight 07/29/16 06:59 Weight 74.843 kg - Constitutional General appearance: average body habitus, cooperative, no acute distress - EENT dry mucus membranes Eyes: EOMI, PERRLA, normal appearance - Neck Neck: no lymphadenopathy - Respiratory Respiratory: right: diminished (RLL), left: CTA - Cardiovascular Heart sounds: normal: S1, S2 leg Peripheral Edema: bilateral: None - Gastrointestinal General gastrointestinal: no absent bowel sounds, no decreased bowel sounds, no distended, no hepatomegaly, no hyperactive bowel sounds, normal bowel sounds, no organomegaly, no rigid, no scaphoid, soft, no splenomegaly, no tenderness, no umbilical hernia, no ventral hernia - Integumentary Integumentary: pale - Musculoskeletal Musculoskeletal: generalized weakness - Psychiatric Psychiatric: no A&O x's 3, no appropriate affect, no intact judgment & insight Results CBC & Chem 7: 07/27/16 21:05 07/27/16 21:05 Labs: Abnormal Lab Results - Last 24 Hours (Table) 07/27/16 07/27/16 07/27/16 Range/Units 21:05 21:05 22:25 BUN 21 H (9-20) mg/dL Glucose 104 H (74-99) mg/dL Total Creatine Kinase 28 L (55-170) U/L Urine Protein 1+ H (Negative) Urine Ketones Trace H (Negative) Ur Leukocyte Esterase Trace H (Negative) Hyaline Casts 6 H (0-2) /lpf Urine Mucus Few H (None) /hpf Assessment and Plan (1) Prostate CA Narrative/Plan: Pt was started on eliguard with Dr. Hidalgo and had his 1st injection 07/17/16. There are no other plans for treatment of pt prostate cancer at this time unless malignant effusion is found to be consistent with prostate primary. Status: Chronic (2) Malignant pleural effusion Narrative/Plan: Consulted Cardiothoracic surgery for evaluation of pt to see if VATS would be appropriate as previous thoracentesis cytology was non-diagnostic. Pathologically diagnosis of the cause of the malignant effusion is critical because if it is malignant prostate cancer then there are several hormonal treatments that could be used for disease control with minimal SE. If the cause of the effusion is mesothelioma then the prognosis is certainly impacted as there are only chemotherapy options for treatment which the pt is not a candidate for. We will await recommendations Status: Acute
--- NOTE | 2016-07-28 17:08 | P.CNPUL ---
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 He was found to have a large right pleural effusion. Initial thoracentesis was done about 2 months ago, and the cytology was suspicious but no confirmatory diagnosis was made. Another thoracentesis was done about 4 weeks ago, and again the cytology was nondiagnostic. However based on the staging, there seems to be suspicion that the patient may have mesothelioma. Patient presented again this time with similar symptoms including shortness of breath, and chest x-ray showed again a large right-sided pleural effusion. I reviewed the chest x-ray with the and with the patient, and I felt that I could potentially arrange for a repeat thoracentesis one more time. And I plan to do that tomorrow. Apparently thoracic surgery was consulted, for possible Pleurx catheter placement, and I believe no decision has been made regarding Pleurx catheter placement at this point. If decision is made to place 1, I will cancel my plans for thoracentesis tomorrow. In the meantime I ordered ultrasound of the chest. Review of Systems ROS unobtainable: due to mental status Past Medical History Past Medical History: Cancer, COPD, CVA/TIA, Dementia, Eye Disorder, Hypertension, Memory Impairment, Sleep Apnea/CPAP/BIPAP, Vascular Disorder Additional Past Medical History / Comment(s): CVA with blindness R eye, prostate CA treated with hormones, vertigo but spouse thinks might be due to position changes, JUAN M with no CPAP use. History of Any Multi-Drug Resistant Organisms: None Reported Past Surgical History: Appendectomy, Pacemaker Additional Past Surgical History / Comment(s): AAA repair, 7 stents spouse states all in his aorta and bilateral legs, L caratid endartectomy, pacemaker, colonoscopy, thoracentesis Past Anesthesia/Blood Transfusion Reactions: No Reported Reaction Type of Cardiac Device: Permanent Pacemaker Device Placement Date:: 2009 Past Psychological History: No Psychological Hx Reported Additional Psychological History / Comment(s): Pt has dementia and memory loss. He resides with his spouse of 17yrs. He uses no assistive device. 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 His spouse drives. He is not receiving any home care. Smoking Status: Former smoker Past Alcohol Use History: None Reported Additional Past Alcohol Use History / Comment(s): Pt smoked from about 1950 to about 1979. Past Drug Use History: None Reported - Past Family History Mother Family Medical History: Cancer Additional Family Medical History / Comment(s): Mother lived to be close to 90. Father Family Medical History: Dementia Additional Family Medical History / Comment(s): Father in his late 80's. Medications and Allergies Home Medications Medication Instructions Recorded Confirmed Type Aspirin 81 mg PO HS 05/20/16 07/27/16 History Atenolol [Tenormin] 50 mg PO HS 05/20/16 07/27/16 History Calcium Carbonate/Vitamin D3 1 tab PO DAILY 05/20/16 07/27/16 History [Calcium 600-Vit D3 200 Tablet] Clopidogrel [Plavix] 75 mg PO HS 05/20/16 07/27/16 History Cyanocobalamin (Vitamin B-12) 1,000 mcg PO DAILY 05/20/16 07/27/16 History [Vitamin B-12] Fludrocortisone [Florinef] 0.1 mg PO DAILY 05/20/16 07/27/16 History Lisinopril [Zestril] 10 mg PO DAILY 05/20/16 07/27/16 History Lutein 10 mg PO HS 05/20/16 07/27/16 History amLODIPine [Norvasc] 5 mg PO HS 05/20/16 07/27/16 History Memantine HCl/Donepezil HCl 1 cap PO DAILY 06/30/16 07/27/16 History [Namzaric 28 mg-10 mg Capsule] Allergies Allergy/AdvReac Type Severity Reaction Status Date / Time No Known Allergies Allergy Verified 07/27/16 21:15 Physical Exam Vitals: Vital Signs Temp Pulse Pulse Resp BP BP Pulse Ox 07/28/16 15:00 98 F 58 L 18 123/66 93 L 07/28/16 12:22 93 L 07/28/16 07:00 98.5 F 66 20 130/60 93 L 07/28/16 00:30 98.4 F 61 20 141/72 95 07/27/16 23:40 98.0 F 68 22 132/68 96 07/27/16 23:00 98.2 F 60 20 158/79 98 07/27/16 22:30 58 L 20 113/70 94 L 07/27/16 21:21 62 22 91 L 07/27/16 21:18 22 07/27/16 20:44 96.9 F L 60 22 91/50 88 L Intake and Output 07/28/16 07/28/16 07/28/16 06:59 14:59 22:59 Intake Total 10 Balance 10 Intake: Intake, IV Titration 10 Amount Sodium Chloride 0.9% 1, 10 000 ml @ 20 mls/hr IV . Q24H ONE Rx#:[id number] Other: Voiding Method Urinal Urinal # Voids 0 Weight 74.843 kg 74.843 kg Patient Weight 07/29/16 06:59 Weight 74.843 kg GENERAL EXAM: Alert, comfortable in no apparent distress. HEAD: Normocephalic. EYES: Normal reaction of pupils, equal size. NOSE: Clear with pink turbinates. THROAT: No erythema or exudates. NECK: No masses, no JVD. CHEST: No chest wall deformity. LUNGS: Diminished in the right lung base. CVS: S1 and S2 normal with no audible murmurs, regular rhythm. ABDOMEN: No hepatosplenomegaly, normal bowel sounds, no guarding or rigidity. SPINE: No scoliosis or deformity SKIN: No rashes CENTRAL NERVOUS SYSTEM: No focal deficits, tone is normal in all 4 extremities. Extremities: There is no significant peripheral edema. No clubbing, no cyanosis. Peripheral pulses are intact. Results - Laboratory Findings CBC and BMP: 07/27/16 21:05 07/27/16 21:05 PT/INR, D-dimer PT 12.0 sec (9.0-12.0) 07/27/16 21:05 INR 1.2 (<1.1) 07/27/16 21:05 Abnormal lab findings: Abnormal Labs 07/27/16 07/27/16 07/27/16 21:05 21:05 22:25 BUN 21 H Glucose 104 H Total Creatine Kinase 28 L Urine Protein 1+ H Urine Ketones Trace H Ur Leukocyte Esterase Trace H Hyaline Casts 6 H Urine Mucus Few H - Diagnostic Findings Chest x-ray: image reviewed (Large right-sided pleural effusion was noted) Assessment and Plan Plan: #1 Dyspnea secondary to moderate size right pleural effusion. 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 #2 Remote history of chronic tobacco dependence however quit 34 years ago. 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 #4 Hypertension. #5 Peripheral vascular disease with multiple stent placements in the lower extremities. And previous stent to the aorta. 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 #7 History of prostate cancer. Plan: Patient will have ultrasound of the chest, and I plan to drain the right pleural effusion in a.m., and consider discharging the patient shortly after. Time with Patient: Greater than 30
[2016-07-28] MEDS: ASPIRIN 81 MG CHEW PO SCH (20:34)
[2016-07-28] MEDS: amLODIPine 5 MG TAB PO SCH (20:34)
[2016-07-28] MEDS: ATENOLOL 50 MG TAB PO SCH (20:34)
[2016-07-28] MEDS: CLOPIDOGREL 75 MG TAB PO SCH (20:34)
[2016-07-28] MEDS ORDERED: NON-FORMULARY DRUG (Lutein [Lutein] 10 MG) PO SCH (21:00)
[2016-07-29] MEDS: CALCIUM CARB-VIT D 500MG-200UN 1 EACH TAB PO SCH (08:41)
[2016-07-29] MEDS: CYANOCOBALAMIN 500 MCG TAB PO SCH (08:41)
[2016-07-29] MEDS: DONEPEZIL 10 MG TAB PO SCH (08:41)
[2016-07-29] MEDS: LISINOPRIL 10 MG TAB PO SCH (08:42)
[2016-07-29] MEDS: FLUDROCORTISONE 0.1 MG TAB PO SCH (08:42)
[2016-07-29] MEDS: MEMANTINE 10 MG TAB PO SCH ×2 (08:42→20:00)
--- NOTE | 2016-07-29 11:07 | US ---
EXAMINATION TYPE: US chest DATE OF EXAM: 07/29/2016 9:05 AM COMPARISON: Correlation radiograph 07/27/2016 CLINICAL HISTORY: 89-year-old male with right pleural effusion. TECHNIQUE: Multiple sonographic images of the posterior lower hemithoraces for assessment of pleural effusion. FINDINGS: EXAM MEASUREMENTS: Right Pleural Effusion fluid pocket: 11.1 cm Right skin surface to fluid distance: 1.5 cm No pleural effusion on the left. Right side marked for possible thoracentesis outside the dept. Pulmonologists are able to review the images in the patient?s EMR. IMPRESSIONS: Large right pleural effusion marked for possible thoracentesis.
--- NOTE | 2016-07-29 11:16 | P.PN ---
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 He was found to have a large right pleural effusion. Initial thoracentesis was done about 2 months ago, and the cytology was suspicious but no confirmatory diagnosis was made. Another thoracentesis was done about 4 weeks ago, and again the cytology was nondiagnostic. However based on the staging, there seems to be suspicion that the patient may have mesothelioma. Patient presented again this time with similar symptoms including shortness of breath, and chest x-ray showed again a large right-sided pleural effusion. I reviewed the chest x-ray with the and with the patient, and I felt that I could potentially arrange for a repeat thoracentesis one more time. And I plan to do that tomorrow. Apparently thoracic surgery was consulted, for possible Pleurx catheter placement, and I believe no decision has been made regarding Pleurx catheter placement at this point. If decision is made to place 1, I will cancel my plans for thoracentesis tomorrow. In the meantime I ordered ultrasound of the chest. The patient is seen again today 07/29/2016 in follow-up on the oncology floor. He is awake and alert in no acute distress. He is maintaining good O2 saturations in the 90s on 2 L/m per nasal cannula. He's been afebrile. The ultrasound of the right chest did reveal significant amount of pleural effusion. The plan is for right-sided thoracentesis today with Dr. Sanford. Objective - Vital Signs Vital signs: Vital Signs Temp 97.9 F 07/29/16 07:00 Pulse 60 07/29/16 07:00 Resp 18 07/29/16 07:00 BP 137/70 07/29/16 07:00 Pulse Ox 90 L 07/29/16 07:00 Intake & Output 07/28/16 07/29/16 07/29/16 18:59 06:59 18:59 Intake Total 1020 235 Balance 1020 235 Weight 74.843 kg 74.843 kg Intake: Intake, IV Titration 240 Amount Sodium Chloride 0.9% 1, 240 000 ml @ 20 mls/hr IV . Q24H ONE Rx#:[id number] Oral 780 235 Other: Voiding Method Urinal Urinal Urinal # Voids 0 1 - Exam GENERAL EXAM: Alert, active, comfortable in no apparent distress. HEAD: Normocephalic. EYES: Normal reaction of pupils, equal size. NOSE: Clear with pink turbinates. THROAT: No erythema or exudates. NECK: No masses, no JVD. CHEST: No chest wall deformity. LUNGS: Equal air entry with crackles in the right posterior base, diminished. CVS: S1 and S2 normal with no audible mumurs, regular rhythm. ABDOMEN: No hepatosplenomegaly, normal bowel sounds, no guarding or rigidity. Extremities: There is no significant peripheral edema. No clubbing, no cyanosis. Peripheral pulses are intact. - Labs CBC & Chem 7: 07/27/16 21:05 07/27/16 21:05 Assessment and Plan Plan: #1 Dyspnea secondary to recurrent moderate size right pleural effusion. 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 #2 Remote history of chronic tobacco dependence however quit 34 years ago. 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 #4 Hypertension. #5 Peripheral vascular disease with multiple stent placements in the lower extremities. And previous stent to the aorta. 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 #7 History of prostate cancer. Plan: The patient was seen and evaluated by Dr. Sanford. His chest x-ray and ultrasound of the right chest was reviewed. We'll plan on performing a thoracentesis today. Previous analysis of the pleural effusion ruled out malignancy however there still is a strong suspicion for mesothelioma. We will send fluid again for analysis. Continue with his current medications. We'll continue to follow.
--- NOTE | 2016-07-29 13:29 | XR ---
EXAMINATION TYPE: XR chest 1V portable DATE OF EXAM: 07/29/2016 1:08 PM Comparison: 07/27/2016 Clinical History: 89-year-old male s/p thoracentesis Findings: Right heart margin remains obscured by adjacent pleural-parenchymal disease. Continued moderate to la rge right pleural effusion. No appreciable pneumothorax. Left anterior chest wall pacemaker generator with right atrial and right ventricular leads. There appears to have been some improvement in the ma ss effect onto the heart. Impression: Persistent moderate to large right pleural effusion with adjacent atelectasis and/or consolidation. N o pneumothorax. Improvement in the slight mass effect on the heart.
--- NOTE | 2016-07-29 14:53 | CDI ---
In responding to this query, please exercise your independent professional judgment. The [facility] Coding Staff and Clinical Documentation Specialists appreciate your assistance in clarifying documentation, maintaining compliance with coding guidelines, accurately documenting patients condition and capturing severity of illness. The fact that a question is asked does not imply that any particular answer is desired or expected. Communication forms are a method of clarifying documentation and are not made part of the Legal Health Record. Thank you in advance for your clarification. Last Revision, May 2015 Derick English [address] [facility] [place] [address] Documentation Clarification Form Date: 07/29/2016 2:43:00 PM From: Gloria Bell CCS, CCDS Admit Date: 07/27/2016 11:08:00 PM Patient Name: Fam Brandt Visit Number: [id number] Discharge Date: Dr. Rolf Sanford: 89 yo male patient presented with the following respiratory symptoms: SOB, diminished breath sounds on the right. Has had several thoracentesis for recurrent pleural effusion. 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 Former smoker. Home oxygen: Per pulmonary consult: recently started home O2. Clinical Indicators: VS: Resp rate: 22 (sob), PO 88 ra, 91 2Lnc. Treatment: IV Rocephin, O2, pending thoracentesis. Consults: Oncology, Pulmonary, Cardiothoracic surgery In your professional opinion, can you please clarify if these findings signify one of the following conditions? Acuity: o Acute o Chronic o Acute on Chronic Respiratory Status: o Respiratory failure o Respiratory failure with hypercapnia o Respiratory failure with hypoxia o Acute Respiratory Distress o Other Diagnosis, please specify o Unable to determine Please document in your progress notes and discharge summary in order to capture severity of illness and risk of mortality. Include clinical findings that support your diagnosis. FYI: Press F11 to launch patient chart. Place X here if this finding has no clinical significance, is not applicable or if you are not able to provide any additional documentation. Thank You. JOE
--- NOTE | 2016-07-29 19:49 | PN ---
DATE OF SERVICE: 07/29/2016 I am covering for Dr. Shin Negrete. This 89-year-old gentleman, admitted with weakness and tiredness, also had urinary difficulties. The patient also had shortness of breath. The patient also had a right pleural effusion, the etiology of which is undetermined at this time. Pulmonary is contemplating thoracocentesis and awaiting the opinion of Cardiothoracic Surgery also. Past medical history reviewed. Review of systems could not be taken because of the patient's significant dementia. The current medications are reviewed and include: 1. Norvasc 5 mg. 2. Aspirin 81 mg. 3. Tenormin 50 mg. 4. Os-Adama with vitamin D. 5. Rocephin 1 gram daily. 6. Plavix 75 mg. 7. Vitamin B12 1000 mg. 8. Aricept 10 mg. 9. Florinef 0.1 daily. 10. Zestril 10 mg daily. 11. Namenda 10 mg p.o. b.i.d. PHYSICAL EXAMINATION: Patient is alert and oriented x1. Pulse 60, blood pressure 137/70, respiration 18, temperature 97.9, pulse ox 90% on 2 L. HEENT: Conjunctivae normal. Oral mucosa moist. NECK: No jugular venous distention. No carotid bruit. No lymph node enlargement. CARDIOVASCULAR SYSTEM: S1, S2 muffled. No S3. No S4. RESPIRATORY SYSTEM: Breath sounds diminished at the bases. A few scattered rhonchi and crackles. ABDOMEN: Soft, non-tender. LEGS: No edema. No swelling. NERVOUS SYSTEM: Diffusely weak. LABS: CBC within normal limits. Glucose 104. UA noted. ASSESSMENT: 1. Right pleural effusion with shortness of breath for evaluation; possibly mesothelioma. 2. History of recurrent right pleural effusion as well as thoracocentesis. 3. History of chronic obstructive pulmonary disease. 4. Cerebrovascular accident, transient ischemic attack. 5. History of dementia. 6. History of hypertension. 7. Memory impairment. 8. History of vascular disorders. 9. History of prostate cancer treatment. 10. History of sleep apnea, on CPAP. 11. History of pacemaker. 12. History of abdominal aortic aneurysm repair. 13. History of aortic stent. 14. History of peripheral vascular disease. 15. Left carotid endarterectomy. 16. History of thoracocentesis. 17. History of dementia. 18. Gait dysfunction. 19. Increased BUN. 20. Left groin cellulitis and abscess, improving. 21. NO CODE, NO CPR, NO VENT RECOMMENDATIONS AND DISCUSSION: I recommend to continue with the current medications, continue with symptomatic treatment. Discussed with the patient's at the bedside. I would follow up the patient closely with Dr. Sanford for possible thoracocentesis and Cardiothoracic Surgery for possible chest tube drainage. We will also get PT, OT evaluation and explore the possibility of ECF rehab because the patient is extremely weak. Prognosis guarded because of multiple complex medical issues. There is no definite evidence of mesothelioma but the suspicion is high because of the atypical cells. Further recommendations to follow. Discussed with patient and family.
[2016-07-29] MEDS: ASPIRIN 81 MG CHEW PO SCH (20:00)
[2016-07-29] MEDS: amLODIPine 5 MG TAB PO SCH (20:00)
[2016-07-29] MEDS: ATENOLOL 50 MG TAB PO SCH (20:00)
[2016-07-29] MEDS: CLOPIDOGREL 75 MG TAB PO SCH (20:01)
--- NOTE | 2016-07-29 22:57 | PCN ---
DATE OF PROCEDURE: PROCEDURE: Right-sided thoracentesis. PREOPERATIVE DIAGNOSIS: Large right pleural effusion. POSTOPERATIVE DIAGNOSIS: Large right pleural effusion. ANESTHESIA USED: 3 mL of 2% lidocaine. PROCEDURE: Patient was placed in a sitting upright position. The area below the right scapula was prepared in a sterile fashion and drapes were applied. The area of the fluid was earlier localized by ultrasound guidance. At that same level, the area was locally anesthetized using lidocaine. Then a 26-gauge needle was inserted at the same site, advanced into the pleural space until the fluid was localized. Then a standard thoracentesis catheter and needle were used. Prior to inserting the needle, a small stab was made in the area of the eighth intercostal space ( ) scapula to penetrate the skin. Then the needle and catheter were used, advanced into the pleural space, and as the fluid was localized, the needle was advanced. It was pulled out of the pleural space, and the catheter was advanced over the needle into the pleural space. Fluid was removed. Roughly 1600 mL of thick yellow fluid was removed from the right pleural space. Fluid was sent for cytology. Chest x-ray postoperatively continued to show good-sized right-sided pleural effusion, but no evidence of pneumothorax. No evidence of any immediate complications.
[2016-07-30] MEDS: CALCIUM CARB-VIT D 500MG-200UN 1 EACH TAB PO SCH (08:35)
[2016-07-30] MEDS: MEMANTINE 10 MG TAB PO SCH ×2 (08:36→23:14)
[2016-07-30] MEDS: CYANOCOBALAMIN 500 MCG TAB PO SCH (08:36)
[2016-07-30] MEDS: FLUDROCORTISONE 0.1 MG TAB PO SCH (08:37)
[2016-07-30] MEDS: LISINOPRIL 10 MG TAB PO SCH (08:37)
[2016-07-30] MEDS: DONEPEZIL 10 MG TAB PO SCH (08:38)
--- NOTE | 2016-07-30 10:50 | P.PN ---
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 He was found to have a large right pleural effusion. Initial thoracentesis was done about 2 months ago, and the cytology was suspicious but no confirmatory diagnosis was made. Another thoracentesis was done about 4 weeks ago, and again the cytology was nondiagnostic. However based on the staging, there seems to be suspicion that the patient may have mesothelioma. Patient presented again this time with similar symptoms including shortness of breath, and chest x-ray showed again a large right-sided pleural effusion. I reviewed the chest x-ray with the and with the patient, and I felt that I could potentially arrange for a repeat thoracentesis one more time. And I plan to do that tomorrow. Apparently thoracic surgery was consulted, for possible Pleurx catheter placement, and I believe no decision has been made regarding Pleurx catheter placement at this point. If decision is made to place 1, I will cancel my plans for thoracentesis tomorrow. In the meantime I ordered ultrasound of the chest. The patient is seen again today 07/29/2016 in follow-up on the oncology floor. He is awake and alert in no acute distress. He is maintaining good O2 saturations in the 90s on 2 L/m per nasal cannula. He's been afebrile. The ultrasound of the right chest did reveal significant amount of pleural effusion. The plan is for right-sided thoracentesis today with Dr. Sanford. The patient is seen again today 07/30/2016 in follow-up on the oncology floor. He remains awake and alert in no acute distress. He is breathing easier today as compared to yesterday. Dr. Sanford did remove 1.6 L of fluid yellowish-brown fluid. Cytology is pending. Follow-up chest x-ray does show continued moderate pleural effusion. He is suspicious for mesothelioma however previous pleural fluid samples failed to demonstrate malignancy. His saturations do drop into the low 80s on room air. He is now maintaining good O2 saturations in the 90s on 3 L/m per nasal cannula. He remains on ceftriaxone. Objective - Vital Signs Vital signs: Vital Signs Temp 97.6 F 07/30/16 07:50 Pulse 61 07/30/16 07:50 Resp 16 07/30/16 07:50 BP 120/73 07/30/16 07:50 Pulse Ox 94 L 07/30/16 07:55 Intake & Output 07/29/16 07/30/16 07/30/16 18:59 06:59 18:59 Intake Total 670 1660 Balance 670 1660 Intake: Intake, IV Titration 200 Amount Sodium Chloride 0.9% 1, 150 000 ml @ 20 mls/hr IV . Q24H ONE Rx#:[id number] cefTRIAXone 1,000 mg In 50 Sodium Chloride 0.9% 50 ml @ 100 mls/hr IVPB Q24HR [facility] Rx#:[id number] Oral 470 1660 Other: Voiding Method Urinal Toilet Toilet Urinal Urinal # Voids 1 - Exam GENERAL EXAM: Alert, active, comfortable in no apparent distress. HEAD: Normocephalic. EYES: Normal reaction of pupils, equal size. NOSE: Clear with pink turbinates. THROAT: No erythema or exudates. NECK: No masses, no JVD. CHEST: No chest wall deformity. LUNGS: Equal air entry with crackles in the right posterior base, diminished. CVS: S1 and S2 normal with no audible mumurs, regular rhythm. ABDOMEN: No hepatosplenomegaly, normal bowel sounds, no guarding or rigidity. Extremities: There is no significant peripheral edema. No clubbing, no cyanosis. Peripheral pulses are intact. - Labs CBC & Chem 7: 07/27/16 21:05 07/27/16 21:05 Assessment and Plan Plan: #1 Dyspnea secondary to recurrent moderate size right pleural effusion. 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 #2 Acute on chronic hypoxic respiratory failure secondary to recurrent right pleural effusion. 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 #4 Hypertension. #5 Peripheral vascular disease with multiple stent placements in the lower extremities. And previous stent to the aorta. 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 #7 History of prostate cancer. #8 Remote history of chronic tobacco dependence however quit 34 years ago. #9 Dementia. Plan: The patient was seen and evaluated by Dr. Sanford. 1.6 L of thick yellowish brown fluid was removed status post right thoracentesis. Follow-up chest x-ray continues to reveal evidence of moderate pleural effusion. Cytology is pending. If positive for mesothelioma the patient's may consider hospice versus treatment as his overall health has been declining. She is not sure that she can care for him at home. Social work is on the case as well. In the interim, we'll continue with his current medications. We will continue to follow.
--- NOTE | 2016-07-30 11:21 | XR ---
EXAMINATION TYPE: XR chest 1V portable DATE OF EXAM: 07/30/2016 11:14 AM COMPARISON: 07/29/2016 HISTORY: Pleural effusion FINDINGS: There are bilateral pleural effusions with cardiomegaly and bibasilar infiltrate. There is a diffuse interstitial pattern. Diffuse osteopenia and chronic deformity of the left clavicle. Cardiac device seen with atherosclerotic change aorta. IMPRESSION: 1. Stable bilateral pleural effusions greater on the right. Underlying CHF not excluded.
--- NOTE | 2016-07-30 20:14 | PN ---
DATE OF SERVICE: 07/30/2016 I am covering for Dr. Shin Negrete. This 89-year-old gentleman admitted with severe weakness, also had pleural effusion on the right side. The patient had about 1.3 L of fluid aspirated inhalation, most of it is possibly pleural plaque, combination of tumor mass according to Dr. Sanford. The patient is also complaining of tiredness and weakness and PT/OT evaluated for possible ECF rehab also. Past medical history reviewed. REVIEW OF SYSTEMS: Could not be taken, the patient has got dementia. Current medications are reviewed and include: 1. Norvasc 5 mg daily. 2. Aspirin 81 mg. 3. Tenormin 50 mg. 5. Vitamin B12. 6. Aricept. 7. Florinef. Physical examination: Patient is conscious, otherwise minimally communicative, pulse 60, blood pressure 130/64, respiratory rate 16, temperature 97.3, pulse ox 99% on 3L. HEENT: Conjunctivae normal. NECK: No jugular venous distention. CARDIOVASCULAR: S1, S2 muffled. RESPIRATORY: Breath sounds diminished at the bases. A few scattered rhonchi and crackles. diminished on the right side. ABDOMEN: Soft, nontender. Legs: No edema. No swelling. Nervous system: No focal deficits. LABS: CBC within normal limits. Glucose 104. UA noted. ASSESSMENT: 1. 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 2. History of recurrent right pleural effusion as well as thoracocentesis.. 3. History of chronic obstructive pulmonary disease. 4. History of cerebrovascular accident, transient ischemic attack. 5. History of dementia. 6. Hypertension. 7. Memory impairment. 8. History of vascular disorder. 9. History of prostate cancer treatment. 10. History of sleep apnea on CPAP. 11. History of pacemaker. 12. Abdominal aortic aneurysm. 13. History of aortic stents. 14. History of peripheral vascular disease. 15. Left carotid endarterectomy. 16. History of thoracocentesis. 17. History of dementia. 18. Gait dysfunction. 19. Increased BUN. 20. Left groin cellulitis and abscess, improving. 21. NO CODE, NO CPR. NO VENTILATOR. RECOMMENDATIONS AND DISCUSSION: Recommend to continue current medications, symptomatic treatment. Otherwise, at this time continue with antibiotics. Otherwise, I would also recommend close follow-up and I discussed with Dr. Sanford. Prognosis is extremely guarded. Discussed at length with the at the bedside. We will also probably obtain informational visit from palliative care hospice team and currently the would like the patient to go to rehab. Continue PT, OT. prognosis guarded. The patient is not a candidate for surgery intervention by cardiothoracic surgery. Further recommendations to follow. MTDD
[2016-07-30] MEDS: CLOPIDOGREL 75 MG TAB PO SCH (23:13)
[2016-07-30] MEDS: ATENOLOL 50 MG TAB PO SCH (23:13)
[2016-07-30] MEDS: ASPIRIN 81 MG CHEW PO SCH (23:14)
[2016-07-30] MEDS: amLODIPine 5 MG TAB PO SCH (23:14)
[2016-07-31] MEDS: CALCIUM CARB-VIT D 500MG-200UN 1 EACH TAB PO SCH (07:30)
[2016-07-31] MEDS: CYANOCOBALAMIN 500 MCG TAB PO SCH (07:31)
[2016-07-31] MEDS: DONEPEZIL 10 MG TAB PO SCH (07:31)
[2016-07-31] MEDS: LISINOPRIL 10 MG TAB PO SCH (07:31)
[2016-07-31] MEDS: FLUDROCORTISONE 0.1 MG TAB PO SCH (07:31)
[2016-07-31] MEDS: MEMANTINE 10 MG TAB PO SCH (07:32)
[2016-07-31 11:51] VITALS: BP 126/69; RESP 20; TEMP 97
[2016-07-31 12:10] VITALS: PULSE 60
--- NOTE | 2016-07-31 12:16 | DS ---
DATE OF ADMISSION: 07/27/2016 DATE OF DISCHARGE: DATE OF SERVICE: 07/31/2016 FINAL DIAGNOSES: 1. 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 2. History of recurrent right pleural effusion as well as thoracocentesis. 3. History of chronic obstructive pulmonary disease. 4. History of cerebrovascular accident, transient ischemic attack. 5. History of dementia. 6. Hypertension. 7. History of memory impairment. 8. History of vascular disorder. 9. History of prostate cancer treatment. 10. History of sleep apnea on CPAP. 11. History of pacemaker. 12. Abdominal aortic aneurysm. 13. History of aortic stent. 14. History of peripheral vascular disease. 15. History of left carotid endarterectomy. 16. History of thoracocentesis. 17. History of anemia. 18. Gait dysfunction. 19. Increased BUN. 20. Left groin cellulitis and abscess, improved. 21. NO CODE, NO CPR, NO VENT. 22. Acute purulent tracheobronchitis. DISCHARGE DISPOSITION: The patient will be discharged in a stable condition with guarded prognosis. Total time taken 35 minutes. HISTORY OF PRESENT ILLNESS: This 89-year-old gentleman with a past medical history of multiple medical problems as mentioned earlier being following by Dr. Shin Negrete in the outpatient setting was admitted with generalized weakness and right pleural effusion. The patient had thoracocentesis by Dr. Sanford. The patient did improve to some extent, but, however, significant lesions in x-ray remains. The patient was monitored by PT, OT and rehab is recommended at this time. On exam, vitals are stable. CARDIOVASCULAR SYSTEM: S1, S2, muffled. RESPIRATORY: A few scattered rhonchi. Breath sounds diminished especially on the right side. ABDOMEN: Soft. NERVOUS SYSTEM: No focal deficit. DISCHARGE ADVICE: 1. Diet is cardiac. 2. Activity as tolerated. 3. Follow up with Dr. Negrete after discharge from [facility]. 4. Follow up with Dr. Foote in 2 to 3 days. The medications are as follows: 1. Tylenol 500 mg q.6 p.r.n. 2. Norvasc 5 mg q.h.s.. 3. Aspirin 81 mg q.h.s. 4. Tenormin 50 mg q.h.s. 5. Calcium carbonate 1 tablet p.o. daily. 6. Ceftin 500 mg p.o. b.i.d. for 5 days. 7. Plavix 75 mg q.h.s. 8. Vitamin B12, 1000 p.o. daily. 9. Florinef 0.1 daily. 10. Zestril 10 mg daily. 11. Lutein 10 mg q.h.s. 12. Memantine donepezil 1 tablet p.o. daily. 13. Xopenex 1.25 and Atrovent t.i.d. and p.r.n. for shortness of breath. The patient's prognosis is guarded at this time because of the malignancy and other issues. If the patient is not improving, the plan will be to transition to either comfort measures or hospice and once again, discussed at length with the and son over the phone. They understood and agreed. JOE
--- NOTE | 2016-07-31 12:58 | P.PN ---
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 He was found to have a large right pleural effusion. Initial thoracentesis was done about 2 months ago, and the cytology was suspicious but no confirmatory diagnosis was made. Another thoracentesis was done about 4 weeks ago, and again the cytology was nondiagnostic. However based on the staging, there seems to be suspicion that the patient may have mesothelioma. Patient presented again this time with similar symptoms including shortness of breath, and chest x-ray showed again a large right-sided pleural effusion. I reviewed the chest x-ray with the and with the patient, and I felt that I could potentially arrange for a repeat thoracentesis one more time. And I plan to do that tomorrow. Apparently thoracic surgery was consulted, for possible Pleurx catheter placement, and I believe no decision has been made regarding Pleurx catheter placement at this point. If decision is made to place 1, I will cancel my plans for thoracentesis tomorrow. In the meantime I ordered ultrasound of the chest. The patient is seen again today 07/29/2016 in follow-up on the oncology floor. He is awake and alert in no acute distress. He is maintaining good O2 saturations in the 90s on 2 L/m per nasal cannula. He's been afebrile. The ultrasound of the right chest did reveal significant amount of pleural effusion. The plan is for right-sided thoracentesis today with Dr. Sanford. The patient is seen again today 07/30/2016 in follow-up on the oncology floor. He remains awake and alert in no acute distress. He is breathing easier today as compared to yesterday. Dr. Sanford did remove 1.6 L of fluid yellowish-brown fluid. Cytology is pending. Follow-up chest x-ray does show continued moderate pleural effusion. He is suspicious for mesothelioma however previous pleural fluid samples failed to demonstrate malignancy. His saturations do drop into the low 80s on room air. He is now maintaining good O2 saturations in the 90s on 3 L/m per nasal cannula. He remains on ceftriaxone. The patient is seen again today 07/31/2016 in follow-up on the oncology floor. He is currently resting quite comfortably in bed. He is awake and alert in no acute distress. He is status post thoracentesis which 1.6 liters of thick yellowish-brown fluid was removed and pathology is still pending. He does require 4 L/m of nasal cannula 19 O2 saturations in the low 90s. He has been afebrile. Hemodynamically stable. No significant tachycardia or tachypnea. His appetite has been quite poor. Objective - Vital Signs Vital signs: Vital Signs Temp 97.0 F L 07/31/16 07:00 Pulse 60 07/31/16 08:00 Resp 20 07/31/16 08:00 BP 126/69 07/31/16 07:00 Pulse Ox 90 L 07/31/16 07:00 Intake & Output 07/30/16 07/31/16 07/31/16 18:59 06:59 18:59 Intake Total 600 Output Total 100 Balance 500 Weight 74.843 kg 74.843 kg Intake: Oral 600 Output: Urine 100 Other: Voiding Method Toilet Toilet Toilet Urinal Urinal Urinal # Voids 1 1 # Bowel Movements 1 - Exam GENERAL EXAM: Alert, active, comfortable in no apparent distress. HEAD: Normocephalic. EYES: Normal reaction of pupils, equal size. NOSE: Clear with pink turbinates. THROAT: No erythema or exudates. NECK: No masses, no JVD. CHEST: No chest wall deformity. LUNGS: Equal air entry with crackles in the right posterior base, diminished. CVS: S1 and S2 normal with no audible mumurs, regular rhythm. ABDOMEN: No hepatosplenomegaly, normal bowel sounds, no guarding or rigidity. Extremities: There is no significant peripheral edema. No clubbing, no cyanosis. Peripheral pulses are intact. - Labs CBC & Chem 7: 07/27/16 21:05 07/27/16 21:05 Assessment and Plan Plan: #1 Dyspnea secondary to recurrent moderate size right pleural effusion. 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 #2 Acute on chronic hypoxic respiratory failure secondary to recurrent right pleural effusion. 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 #4 Hypertension. #5 Peripheral vascular disease with multiple stent placements in the lower extremities. And previous stent to the aorta. 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 #7 History of prostate cancer. #8 Remote history of chronic tobacco dependence however quit 34 years ago. #9 Dementia. #10 6 sinus syndrome, status post permanent pacemaker implantation. Plan: The patient was seen and evaluated by Dr. Sanford. Follow-up chest x-ray continues to reveal evidence of pleural effusion. Cytology is pending. The plan is for discharge to [facility] inpatient rehabilitation. If he does not tolerate that they may consider hospice. If not transferred today we'll continue to follow.
== END 2016-07-31 15:00 | DRG 180 ==
LOC: EC 20:35 → 6SEL 23:08 → 5ONC 23:29
PROVIDERS: ADMIT Family Medicine; ATTEND Family Medicine
PROC: 0W993ZX Drainage of Right Pleural Cavity, Percutaneous Approach, Diagnostic (ICD-10-PCS; principal; 2016-07-29)
DX: C45.0 Mesothelioma of pleura (principal); J96.21 Acute and chronic respiratory failure with hypoxia; J44.0 Chronic obstructive pulmonary disease with (acute) lower respiratory infection; J91.0 Malignant pleural effusion; L03.314 Cellulitis of groin; L02.214 Cutaneous abscess of groin; F03.90 Unspecified dementia, unspecified severity, without behavioral disturbance, psychotic disturbance, mood disturbance, and anxiety; I49.5 Sick sinus syndrome; I11.9 Hypertensive heart disease without heart failure; I73.9 Peripheral vascular disease, unspecified; Z99.81 Dependence on supplemental oxygen; Z66 Do not resuscitate; E78.5 Hyperlipidemia, unspecified; G47.33 Obstructive sleep apnea (adult) (pediatric); J20.9 Acute bronchitis, unspecified; C61 Malignant neoplasm of prostate; R41.3 Other amnesia; R48.8 Other symbolic dysfunctions; I69.398 Other sequelae of cerebral infarction; R53.1 Weakness; R42 Dizziness and giddiness; R94.4 Abnormal results of kidney function studies; R26.9 Unspecified abnormalities of gait and mobility; R51 Headache; R39.198 Other difficulties with micturition; Z95.0 Presence of cardiac pacemaker; Z79.82 Long term (current) use of aspirin; Z79.899 Other long term (current) drug therapy; Z80.9 Family history of malignant neoplasm, unspecified; Z90.49 Acquired absence of other specified parts of digestive tract; Z87.891 Personal history of nicotine dependence; Z86.79 Personal history of other diseases of the circulatory system; Z79.02 Long term (current) use of antithrombotics/antiplatelets; Z79.52 Long term (current) use of systemic steroids; Z71.3 Dietary counseling and surveillance; Z79.818 Long term (current) use of other agents affecting estrogen receptors and estrogen levels; Z77.090 Contact with and (suspected) exposure to asbestos; Z95.820 Peripheral vascular angioplasty status with implants and grafts; Z81.8 Family history of other mental and behavioral disorders
CPT/HCPCS: 36415; 71010; 71020; 76604; 80053; 81001; 82550; 82553; 83735; 84484; 85025; 85610; 85730; 88108; 88305; 88341; 88342; 93005; 94760; 99285